=== PATIENT | female | born 1970 | race Caucasian/White ===

== ENCOUNTER 2017-10-24 07:41 | Observation (INO) | payer OTHER, SELFPAY ==
[~2017-10-24 07:41] MED LIST: Bupivacaine 25%/EPINEPHrine/PF 30 ML ONE; Ondansetron 4 MG Tab.DIS PO PRN; Ondansetron 4 MG/2 ML SDV IVPUSH PRN; Scopolamine 1.5 MG Transdermal Patch TRDERM PRN; diphenhydrAMINE 25 MG Cap PO PRN; fentaNYL 100 MCG/2 ML SDV IVPUSH PRN
[2017-10-24] MEDS ORDERED: Acetaminophen 1,000 MG in Premix Bag 1 BAG IV SCH (07:45)
[2017-10-24] MEDS ORDERED: traMADol 50 MG Tab PO PRN (08:00)
[2017-10-24] MEDS ORDERED: Bupivacaine 0.25%/EPINEPHrine 1:200,000 10 ML SDV INJECT ONE (08:00)
[2017-10-24] MEDS ORDERED: ceFAZolin 2 GM in Premix Bag 1 BAG IV ONE (08:00)
[2017-10-24] MEDS: Lactated Ringers 1,000 ML IV SCH (08:50)
--- NOTE | 2017-10-24 08:52 | PCM.PREANE ---
Preanesthetic Assessment - Anesthesia/Transfusion/Family Hx Anesthesia History: Prior Anesthesia Without Reaction Family History of Anesthesia Reaction: No Transfusion History: No Prior Transfusion(s) Intubation History: Unknown - Review of Systems General: No Symptoms Pulmonary: No Symptoms Cardiovascular: No Symptoms Gastrointestinal: No Symptoms Neurological: No Symptoms Other: Reports: None - Physical Assessment Height: 1.52 m Weight: 98.883 kg ASA Class: 2 Mental Status: Alert & Oriented x3 Dentition: Reports: Normal Dentition Thyro-Mental Finger Breadths: 2 Mouth Opening Finger Breadths: 2 ROM/Head Extension: Full Lungs: Clear to Auscultation, Normal Respiratory Effort Cardiovascular: Regular Rate, Regular Rhythm - Allergies Allergies/Adverse Reactions: Allergies Allergy/AdvReac Type Severity Reaction Status Date / Time codeine Allergy Airway Verified 10/22/17 12:31 Tightness morphine Allergy Airway Verified 10/22/17 12:31 Tightness - Blood Blood Available: No - Anesthesia Plan Pre-Op Medication Ordered: None - Acknowledgements Anesthesia Type Planned: General Anesthesia Pt an Appropriate Candidate for the Planned Anesthesia: Yes Alternatives and Risks of Anesthesia Discussed w Pt/Guardian: Yes Pt/Guardian Understands and Agrees with Anesthesia Plan: Yes PreAnesthesia Questionnaire HEENT History: Reports: Other (See Below) Other HEENT History: wears glasses Cardiovascular History: Reports: Other (See Below) Other Cardiovascular History: HTN in the past-not since wt loss Gastrointestinal History: Reports: None Genitourinary History: Reports: None OIL GAUGER History: Reports: Ectopic , Musculoskeletal History: Reports: Arthritis Neurological History: Reports: Migraines Psychiatric History: Reports: Anxiety, Depression, Suicide Attempt Endocrine/Metabolic History: Reports: Diabetes, Type II (h/o diabetes), Hypothyroidism, Obesity/BMI 30+ (BMI 42.6) Other Endocrine/Metabolic History: type II diabetes prior to gastric sleeve - Past Surgical History Head Surgeries/Procedures: Reports: None HEENT Surgical History: Reports: Tonsillectomy GI Surgical History: Reports: Appendectomy, Bariatric Procedure, Cholecystectomy Other GI Surgeries/Procedures: gastric sleeve Female Surgical History: Reports: Section, Endometrial Ablation, Salpingo-Oophorectomy, Tubal Ligation Other Female Surgeries/Procedures: laparoscopy with S&O for ectopic , c/section x4 Endocrine Surgical History: Reports: Thyroidectomy - SUBSTANCE USE Smoking Status *Q: Former Smoker Tobacco Use Within Last Twelve Months: No Recreational Drug Use History: No - HOME MEDS Home Medications: Home Meds Calcium Carbonate [Calcium] 1 tab PO TID 10/22/17 [History] Levothyroxine Sodium [Synthroid] 200 mcg PO DAILY 10/22/17 [History] buPROPion HCl [Wellbutrin Xl] 150 mg PO TID 10/22/17 [History] - CURRENT (IN HOUSE) MEDS Current Meds: Current Medications Hydrocodone Bitart/Acetaminophen ([place] 325-5 Mg) 1 tab PO Q4H PRN PRN Reason: Pain Bupivacaine Liposome (Exparel) 20 ml INFILT ONETIME ONE Stop: 10/24/17 09:01 Cephalexin (Keflex) 500 mg PO Q6HR REGINO Diphenhydramine HCl (Benadryl) 25 mg PO Q6H PRN PRN Reason: Itching Fentanyl (Sublimaze) 50 mcg IVPUSH .Q5MIN PRN PRN Reason: Pain Hydromorphone HCl (Dilaudid) 1 mg IVPUSH Q3H PRN PRN Reason: Pain (severe 7-10) Lactated Ringer's (Ringers, Lactated) 1,000 mls @ 125 mls/hr IV ASDIRECTED REGINO Acetaminophen 1,000 mg/ Premix 100 mls @ 400 mls/hr IV .ONETIME REGINO Ondansetron HCl (Zofran Odt) 4 mg PO Q6H PRN PRN Reason: Nausea/Vomiting Ondansetron HCl (Zofran) 4 mg IVPUSH Q6H PRN PRN Reason: Nausea/Vomiting Scopolamine (Transderm-Scop) 1.5 mg TRDERM .ONCE PRN PRN Reason: Post Op Nausea Tramadol HCl (Ultram) 50 mg PO Q4H PRN PRN Reason: Pain Discontinued Medications Bupivacaine HCl/Epinephrine Bitart ([place] 0.25%/Epinephrine 1:200,000) 10 ml INJECT ONETIME ONE Stop: 10/24/17 08:01 Cefazolin Sodium/Dextrose 2 gm (/ Premix) 50 mls @ 100 mls/hr IV ONETIME ONE Stop: 10/24/17 08:29 Bupivacaine HCl/Epinephrine Bitart (Sensorc Mpf 0.25%-Epi 1:[id number]) Confirm Administered Dose 60 mls @ as directed .ROUTE .STK-MED ONE Stop: 10/24/17 07:39
[2017-10-24] MEDS ORDERED: Midazolam 1 MG/ML 2 ML SDV IVPUSH ONE (08:59)
[2017-10-24] MEDS ORDERED: Bupivacaine Liposome 1.3% 20 ML SDV INFILT ONE (09:00)
[2017-10-24] MEDS ORDERED: Midazolam 1 MG/ML 2 ML SDV ONE (09:54)
[2017-10-24] MEDS ORDERED: Rocuronium 10 MG/ML 10 ML Syringe ONE (09:54)
[2017-10-24] MEDS ORDERED: Lidocaine 2% 5 ML SDV ONE (09:54)
[2017-10-24] MEDS ORDERED: Ondansetron 4 MG/2 ML SDV ONE (09:54)
[2017-10-24] MEDS ORDERED: fentaNYL 250 MCG/5 ML SDV ONE ×2 (09:54→11:48)
[2017-10-24] MEDS ORDERED: EPINEPHrine 1 MG/ML SDV ONE ×2 (10:00→13:17)
[2017-10-24] MEDS ORDERED: Octyl 2-Cyanoacrylate 1 Tube ONE (10:01)
[2017-10-24] MEDS ORDERED: Lidocaine 1% 50 ML MDV ONE ×2 (10:01→13:17)
[2017-10-24] MEDS ORDERED: ceFAZolin/Dextrose,Iso-Osmotic 2 GM/50 ML Duplex Bag IV ONE (10:40)
[2017-10-24] MEDS ORDERED: Dexamethasone 4 MG/ML 5 ML MDV ONE (10:56)
[2017-10-24] MEDS ORDERED: diphenhydrAMINE 50 MG/ML SDV ONE (10:56)
[2017-10-24] MEDS ORDERED: HYDROmorphone 2 MG/ML SDV ONE ×2 (11:08→11:26)
[2017-10-24] MEDS ORDERED: Propofol 200 MG/20 ML SDV ONE (13:24)
[2017-10-24] MEDS ORDERED: Ketorolac 30 MG/ML SDV ONE (14:43)
[2017-10-24] MEDS ORDERED: Promethazine 25 MG/ML SDV IM PRN ×2 (15:13→15:53)
[2017-10-24] MEDS ORDERED: Meperidine PF 25 MG/ML Syringe ONE (15:22)
[2017-10-24] MEDS ORDERED: Meperidine PF 25 MG/ML Syringe IVPUSH PRN (15:22)
--- NOTE | 2017-10-24 15:32 | PCM.OPNOTE ---
- General Post-Op/Procedure Note Date of Surgery/Procedure: 10/24/17 Operative Procedure(s): panniculectomy, abdominal incisional hernia repair, umbilicoplasty and bilateral brachioplasty Pre Op Diagnosis: cosmetic, incendental finding of incisional hernia from previous surgery. Post-Op Diagnosis: Same Anesthesia Technique: General ET Tube, Local Primary Surgeon: Angelina Nettles It Programmer Analyst: Padma Henson Complications: None Condition: Good Free Text/Narrative:: Intake & Output 10/23/17 10/24/17 10/24/17 23:59 07:59 15:59 Intake Total 400 Balance 400
[2017-10-24] MEDS ORDERED: Prochlorperazine 5 MG in Sodium Chloride 0.9% 50 ML IV PRN (15:53)
[2017-10-24] MEDS ORDERED: Prochlorperazine 10 MG/2 ML SDV IV PRN (16:00)
--- NOTE | 2017-10-24 16:09 | PCM.POSTAN ---
POST ANESTHESIA ASSESSMENT - MENTAL STATUS Mental Status: Alert, Oriented - RESPIRATORY Respiratory Status: Respiratory Rate WNL, Airway Patent, O2 Saturation Stable - CARDIOVASCULAR CV Status: Pulse Rate WNL, Blood Pressure Stable - GASTROINTESTINAL GI Status: No Symptoms - PAIN Pain Score: 1 - POST OP HYDRATION Hydration Status: Adequate & Stable - OBSERVATIONS Free Text/Narrative:: no anesthesia problems
--- NOTE | 2017-10-24 17:17 | OR ---
SURGEON: NICANOR BEAUCHAMP MD DATE OF PROCEDURE: 10/24/2017 PREOPERATIVE DIAGNOSES: 1. Abdominal pannus. 2. Incidental finding of an incisional hernia from previous surgery. 3. Cosmetic for the arms. PROCEDURES: 1. Panniculectomy with umbilicoplasty. 2. Abdominal incisional hernia repair, direct. 3. Bilateral upper arm brachioplasty. MECHANICAL ENGINEERING TECHNOLOGIST: HERBIE Simeon. ANESTHESIA: General ET tube with local. INDICATIONS: Ms. Rasmussen is a 47-year-old female, seen today in evaluation for significant excess skin of the abdomen and the arms. She also has significant abdominal fat. We discussed risks and benefits of panniculectomy and brachioplasty. She does understand that this is skin reduction surgery, not weight reduction surgery, but it is the excess skin that is bothering her most. We discussed risks and benefits of this in detail several times. The risks were including, but not limited to, bleeding, infection, damage to underlying or overlying structures, possible need for future interventions, possible scarring. PROCEDURE IN DETAIL: After informed consent was obtained, placed on the chart, the patient was brought to the operating theater and laid in supine position. After adequate general anesthesia was obtained, the area was prepped and draped and a time-out was completed to confirm side and site. Attention was then first paid to the abdominal incision. The lower transverse incision extending onto the mons area was completed and was incised using a 15 blade after adequate infiltration of local anesthesia. Dissection was carried down to the abdominal wall and then up to the xiphoid process. Unfortunately, an incidental incisional hernia was noted at the lower vertical midline incision. Dissection was carried circumferentially around this until the borders were located and the hernia sac was reduced appropriately. Once reduced, several 0 Ethibond [id number] sutures were placed to close the fascia. Once this was completed, attention was then paid to the umbilicus. The dissection was carried superiorly until isolation of the umbilicus. The umbilical stalk was isolated and then the remainder of the dissection was carried up to the xiphoid process. Once this dissection was completed, meticulous hemostasis was obtained. The area was copiously irrigated. Unfortunately, the patient does have a lot of intraabdominal fat and this is unable to be excised or dealt with. Her abdominal musculature is intact and there is no diastasis at the midline. Given the hernia repair, we did not opt for any additional abdominal wall tightening. Once this was addressed, attention was then paid to redraping of the skin flap and transection of the excess skin for a total of 8 pounds of removal. Once this was removed, meticulous hemostasis was again obtained. Once adequately irrigated, two size 10 PRINCE drains were placed in the lower incision and two 0 PDS sutures were used in a plication fashion to close the abdominal wall to the abdominal fascia and also advanced the skin flap. Once this was completed bilaterally, the skin was stapled in place. Attention was then paid to the mons area, which was decided in advance using 2-0 Ethibond sutures in a [id number] fashion to elevate this. Once elevated, attention was then paid to closure of the skin after minor additional trimming in the mons area. After stapling of the skin, the drains were sutured in place using 3-0 Prolene stitch and then attention was then paid to closure of the abdominal wall using deep 3-0 PDS Stratafix suture in running for the fascia, a deep 3-0 Monocryl Stratafix suture for the dermis, and a running 4-0 Stratafix suture for the skin. The patient tolerated this well and these wounds were dressed with Steri-Strips, fluffs, and tape. Attention was then paid to the bilateral arm dissection. Tumescent was infiltrated into the area and equal amounts for bilateral arms. Once adequately infiltrated, attention was paid to the previous markings for proposed skin excision. The markings had been measured symmetrically in similar amounts extending onto the axillary area through Z-plasty. Once this was completed and the tumescent had been infiltrated, allowed to sit. A small amount of liposuction was done in the surrounding areas to promote fat reduction here and then attention was paid to removal of the excess skin. Once the skin was removed, meticulous hemostasis was obtained. A small amount of subcutaneous tissue above the Keyla's fascia plane was removed as well. Once adequately removed, meticulous hemostasis was obtained. The area was stapled back together in approximation and attention was then paid to the excess axillary fat and transition here. The Z-plasty was designed and cut appropriately to remove excess skin as well. Once adequately removed, meticulous hemostasis was obtained and again the skin was stapled back in place. The symmetry procedure was completed on the opposite side. After meticulous hemostasis and tentative closure, the wounds were permanently closed using deep 3-0 Monocryl Stratafix sutures for the dermis and a running 4- 0 Stratafix suture for the skin. No drains were placed as meticulous hemostasis was obtained. Once the wounds were closed, they were dressed with Steri-Strips, ABDs, and a compression garment. A compression garment was placed on the abdomen as well. The patient tolerated this well. All counts, needles were correct at the end of the case. FOLLOWUP INSTRUCTIONS: The patient will be maintained in the hospital for pain control and nausea control and will anticipate discharge in 1 or 2 days. HEVERO / JAGJIT /[id number]
[2017-10-24] MEDS: HYDROmorphone 1 MG/ML Syringe IVPUSH PRN (17:44)
[2017-10-24] MEDS: Cephalexin 500 MG Cap PO SCH ×3 (17:44→23:22)
[2017-10-24] MEDS: Acetaminophen/HYDROcodone 325-5 MG Tab PO PRN (23:22)
[2017-10-25] MEDS: Lactated Ringers 1,000 ML IV SCH ×2 (03:06→12:04)
[2017-10-25] MEDS: Acetaminophen/HYDROcodone 325-5 MG Tab PO PRN ×4 (04:22→20:14)
[2017-10-25] MEDS: Cephalexin 500 MG Cap PO SCH ×4 (05:38→22:59)
--- NOTE | 2017-10-25 07:04 | PCM48HPAN ---
Post Anesthesia Note - EVALUATION WITHIN 48HRS OF ANESTHETIC Vital Signs in Normal Range: Yes Patient Participated in Evaluation: Yes Respiratory Function Stable: Yes Airway Patent: Yes Cardiovascular Function Stable: Yes Hydration Status Stable: Yes Pain Control Satisfactory: Yes Nausea and Vomiting Control Satisfactory: Yes Mental Status Recovered: Yes Resp Rate: 19
[2017-10-25] MEDS: HYDROmorphone 1 MG/ML Syringe IVPUSH PRN (11:02)
[2017-10-25] MEDS ORDERED: traMADol 50 MG Tab ONE (18:52)
[2017-10-25] MEDS ORDERED: Acetaminophen/HYDROcodone 325-5 MG Tab ONE (20:08)
[2017-10-25] MEDS: Calcium Carbonate 500 MG Tablet PO SCH (21:29)
[2017-10-25] MEDS: buPROPion 150 MG Tab.ER PO SCH (21:29)
[2017-10-25] MEDS ORDERED: Cephalexin 500 MG Cap ONE (22:58)
[2017-10-26] MEDS ORDERED: Acetaminophen/HYDROcodone 325-5 MG Tab ONE ×3 (03:26→12:35)
[2017-10-26] MEDS: Acetaminophen/HYDROcodone 325-5 MG Tab PO PRN ×3 (03:34→12:36)
[2017-10-26] MEDS ORDERED: Cephalexin 500 MG Cap ONE (06:06)
[2017-10-26] MEDS: buPROPion 150 MG Tab.ER PO SCH (06:07)
[2017-10-26] MEDS: Calcium Carbonate 500 MG Tablet PO SCH (06:08)
[2017-10-26] MEDS: Cephalexin 500 MG Cap PO SCH ×2 (06:08→13:43)
[2017-10-26] MEDS ORDERED: Levothyroxine 100 MCG Tab PO SCH (07:00)
--- NOTE | 2017-10-26 16:09 | PCM.PN ---
- General Info Date of Service: 10/25/17 Admission Dx/Problem (Free Text): POD 1 s/p panniculectomy with umbilicoplasty and brachioplasty Functional Status: Reports: Pain Controlled, Tolerating Diet, Incentive Spirometry. Denies: New Symptoms - Review of Systems General: Reports: No Symptoms HEENT: Reports: No Symptoms Pulmonary: Reports: No Symptoms Musculoskeletal: Reports: Arm Pain Skin: Reports: No Symptoms Neurological: Reports: No Symptoms Psychiatric: Reports: No Symptoms - Patient Data Vitals - Most Recent: Last Vital Signs Temp 97.6 F 10/26/17 08:51 Pulse 71 10/26/17 08:51 Resp 16 10/26/17 08:51 BP 140/65 10/26/17 08:51 Pulse Ox 91 L 10/26/17 08:51 Weight - Most Recent: 218 lb I&O - Last 24 Hours: Intake & Output 10/26/17 10/26/17 10/26/17 07:59 15:59 23:59 Intake Total 750 Output Total 545 Balance 205 Med Orders - Current: Current Medications Discontinued Medications Hydrocodone Bitart/Acetaminophen ([place] 325-5 Mg) 1 tab PO Q4H PRN PRN Reason: Pain Last Admin: 10/26/17 12:36 Dose: 2 tab Hydrocodone Bitart/Acetaminophen ([place] 325-5 Mg) Confirm Administered Dose 2 tab .ROUTE .STK-MED ONE Stop: 10/25/17 20:09 Last Admin: 10/25/17 20:16 Dose: Not Given Hydrocodone Bitart/Acetaminophen ([place] 325-5 Mg) Confirm Administered Dose 2 tab .ROUTE .STK-MED ONE Stop: 10/26/17 03:27 Last Admin: 10/26/17 04:20 Dose: Not Given Hydrocodone Bitart/Acetaminophen ([place] 325-5 Mg) Confirm Administered Dose 2 tab .ROUTE .STK-MED ONE Stop: 10/26/17 09:02 Last Admin: 10/26/17 10:43 Dose: Not Given Hydrocodone Bitart/Acetaminophen ([place] 325-5 Mg) Confirm Administered Dose 2 tab .ROUTE .STK-MED ONE Stop: 10/26/17 12:36 Last Admin: 10/26/17 13:43 Dose: Not Given Bupivacaine HCl/Epinephrine Bitart ([place] 0.25%/Epinephrine 1:200,000) 10 ml INJECT ONETIME ONE Stop: 10/24/17 08:01 Last Admin: 10/24/17 18:13 Dose: Not Given Bupivacaine Liposome (Exparel) 20 ml INFILT ONETIME ONE Stop: 10/24/17 09:01 Last Admin: 10/24/17 18:13 Dose: Not Given Bupropion HCl (Wellbutrin Xl) 150 mg PO TID [facility] Last Admin: 10/26/17 06:07 Dose: 150 mg Calcium Carbonate/Glycine ([place] Calcium) 500 mg PO TID [facility] Last Admin: 10/26/17 06:08 Dose: 500 mg Cefazolin Sodium/Dextrose (Ancef) Confirm Administered Dose 2 gm IV .STK-MED ONE Stop: 10/24/17 10:41 Cephalexin (Keflex) 500 mg PO Q6HR [facility] Last Admin: 10/26/17 13:43 Dose: Not Given Cephalexin (Keflex) Confirm Administered Dose 500 mg .ROUTE .STK-MED ONE Stop: 10/25/17 22:59 Last Admin: 10/25/17 23:13 Dose: Not Given Cephalexin (Keflex) Confirm Administered Dose 500 mg .ROUTE .STK-MED ONE Stop: 10/26/17 06:07 Last Admin: 10/26/17 06:10 Dose: Not Given Dexamethasone (Dexamethasone) Confirm Administered Dose 20 mg .ROUTE .STK-MED ONE Stop: 10/24/17 10:57 Diphenhydramine HCl (Benadryl) 25 mg PO Q6H PRN PRN Reason: Itching Diphenhydramine HCl (Benadryl) Confirm Administered Dose 50 mg .ROUTE .STK-MED ONE Stop: 10/24/17 10:57 Epinephrine HCl (Adrenalin) Confirm Administered Dose 1 mg .ROUTE .STK-MED ONE Stop: 10/24/17 10:01 Epinephrine HCl (Adrenalin) Confirm Administered Dose 1 mg .ROUTE .STK-MED ONE Stop: 10/24/17 13:18 Fentanyl (Sublimaze) 50 mcg IVPUSH .Q5MIN PRN PRN Reason: Pain Fentanyl (Sublimaze) Confirm Administered Dose 250 mcg .ROUTE .STK-MED ONE Stop: 10/24/17 09:55 Fentanyl (Sublimaze) Confirm Administered Dose 250 mcg .ROUTE .STK-MED ONE Stop: 10/24/17 11:49 Hydromorphone HCl (Dilaudid) 1 mg IVPUSH Q3H PRN PRN Reason: Pain (severe 7-10) Last Admin: 10/25/17 11:02 Dose: 1 mg Hydromorphone HCl (Dilaudid) Confirm Administered Dose 2 mg .ROUTE .STK-MED ONE Stop: 10/24/17 11:09 Hydromorphone HCl (Dilaudid) Confirm Administered Dose 2 mg .ROUTE .STK-MED ONE Stop: 10/24/17 11:27 Lactated Ringer's (Ringers, Lactated) 1,000 mls @ 125 mls/hr IV ASDIRECTED [facility] Last Admin: 10/25/17 12:04 Dose: 125 mls/hr Cefazolin Sodium/Dextrose 2 gm (/ Premix) 50 mls @ 100 mls/hr IV ONETIME ONE Stop: 10/24/17 08:29 Last Admin: 10/24/17 18:09 Dose: Not Given Acetaminophen 1,000 mg/ Premix 100 mls @ 400 mls/hr IV .ONETIME [facility] Last Admin: 10/24/17 09:10 Dose: 400 mls/hr Bupivacaine HCl/Epinephrine Bitart (Sensorc Mpf 0.25%-Epi 1:[id number]) Confirm Administered Dose 60 mls @ as directed .ROUTE .STK-MED ONE Stop: 10/24/17 07:39 Ketorolac Tromethamine (Toradol) Confirm Administered Dose 30 mg .ROUTE .STK- MED ONE Stop: 10/24/17 14:44 Levothyroxine Sodium (Synthroid) 200 mcg PO DAILY@0700 [facility] Last Admin: 10/26/17 06:07 Dose: 200 mcg Lidocaine (Xylocaine-Mpf 2%) Confirm Administered Dose 5 ml .ROUTE .STK-MED ONE Stop: 10/24/17 09:55 Lidocaine HCl (Xylocaine 1%) Confirm Administered Dose 50 ml .ROUTE .STK-MED ONE Stop: 10/24/17 10:02 Lidocaine HCl (Xylocaine 1%) Confirm Administered Dose 50 ml .ROUTE .STK-MED ONE Stop: 10/24/17 13:18 Meperidine HCl (Demerol) 25 mg IVPUSH .ONETIME PRN PRN Reason: Shivering Meperidine HCl (Demerol) Confirm Administered Dose 25 mg .ROUTE .STK-MED ONE Stop: 10/24/17 15:23 Last Admin: 10/24/17 18:15 Dose: Not Given Midazolam HCl (Versed 1 Mg/Ml) 2 mg IVPUSH ONETIME ONE Stop: 10/24/17 09:00 Last Admin: 10/24/17 10:22 Dose: 1 mg Midazolam HCl (Versed 1 Mg/Ml) Confirm Administered Dose 2 mg .ROUTE .STK-MED ONE Stop: 10/24/17 09:55 Octyl Cyanoacrylate (Dermabond Advance) Confirm Administered Dose 1 applic .ROUTE .STK-MED ONE Stop: 10/24/17 10:02 Ondansetron HCl (Zofran Odt) 4 mg PO Q6H PRN PRN Reason: Nausea/Vomiting Ondansetron HCl (Zofran) 4 mg IVPUSH Q6H PRN PRN Reason: Nausea/Vomiting Last Admin: 10/25/17 11:07 Dose: 4 mg Ondansetron HCl (Zofran) Confirm Administered Dose 4 mg .ROUTE .STK-MED ONE Stop: 10/24/17 09:55 Prochlorperazine Edisylate (Compazine) 5 mg IV Q6H PRN PRN Reason: NAUSEA Promethazine HCl (Phenergan) 12.5 mg IM .ONETIME PRN PRN Reason: Nausea Last Admin: 10/24/17 15:18 Dose: 12.5 mg Promethazine HCl (Phenergan) 12.5 mg IM Q6H PRN PRN Reason: Nausea Propofol (Diprivan 20 Ml) Confirm Administered Dose 200 mg .ROUTE .STK-MED ONE Stop: 10/24/17 13:25 Rocuronium [place] (Zemuron) Confirm Administered Dose 100 mg .ROUTE .STK-MED ONE Stop: 10/24/17 09:55 Scopolamine (Transderm-Scop) 1.5 mg TRDERM .ONCE PRN PRN Reason: Post Op Nausea Last Admin: 10/24/17 10:47 Dose: 1.5 mg Tramadol HCl (Ultram) 50 mg PO Q4H PRN PRN Reason: Pain Last Admin: 10/25/17 18:53 Dose: 50 mg Tramadol HCl (Ultram) Confirm Administered Dose 50 mg .ROUTE .STK-MED ONE Stop: 10/25/17 18:53 Last Admin: 10/25/17 19:01 Dose: Not Given - Exam Quality Assessment: No: Supplemental Oxygen General: Alert, Oriented, Cooperative HEENT: Pupils Reactive, EOMI Lungs: Normal Respiratory Effort Extremities: Normal Inspection, Other (minor swelling as expected. Dressings in place with garments. ) Skin: Warm, Dry Wound/Incisions: Healing Well, Dressing Dry and Intact, Drainage (in PRINCE as expected) Neurological: No New Focal Deficit Psy/Mental Status: Alert, Normal Affect, Normal Mood - Problem List & Annotations (1) Status post panniculectomy SNOMED Code(s): 022503700, 499736567, 532993467 Code(s): Z98.890 - OTHER SPECIFIED POSTPROCEDURAL STATES Status: Acute Priority: Medium (2) Excess skin of abdomen SNOMED Code(s): 983291849 Code(s): L98.7 - EXCESSIVE AND REDUNDANT SKIN AND SUBCUTANEOUS TISSUE Status: Acute Priority: Medium (3) Excess skin of arm SNOMED Code(s): 94607426072977369 Code(s): L98.7 - EXCESSIVE AND REDUNDANT SKIN AND SUBCUTANEOUS TISSUE Status: Acute Priority: Medium - Problem List Review Problem List Initiated/Reviewed/Updated: Yes - My Orders Last 24 Hours: My Active Orders 10/25/17 16:00 Admission Status [Patient Status] [ADT] Routine 10/26/17 10:21 Ready for Discharge [RC] PER UNIT ROUTINE - Plan Plan:: Continue pain control and keep one more night. Likely home tomorrow. Doing OK aside from some nausea and wants to make sure ok without IV meds.
--- NOTE | 2017-10-26 16:12 | PCM.PN ---
- General Info Date of Service: 10/26/17 Admission Dx/Problem (Free Text): POD 1 s/p panniculectomy with umbilicoplasty and brachioplasty Functional Status: Reports: Pain Controlled, Tolerating Diet, Ambulating, Urinating, Incentive Spirometry. Denies: New Symptoms - Review of Systems General: Reports: No Symptoms HEENT: Reports: No Symptoms Pulmonary: Reports: No Symptoms Neurological: Reports: No Symptoms Psychiatric: Reports: No Symptoms - Patient Data Vitals - Most Recent: Last Vital Signs Temp 97.6 F 10/26/17 08:51 Pulse 71 10/26/17 08:51 Resp 16 10/26/17 08:51 BP 140/65 10/26/17 08:51 Pulse Ox 91 L 10/26/17 08:51 Weight - Most Recent: 218 lb I&O - Last 24 Hours: Intake & Output 10/26/17 10/26/17 10/26/17 07:59 15:59 23:59 Intake Total 750 Output Total 545 Balance 205 Med Orders - Current: Current Medications Discontinued Medications Hydrocodone Bitart/Acetaminophen (Lincoln 325-5 Mg) 1 tab PO Q4H PRN PRN Reason: Pain Last Admin: 10/26/17 12:36 Dose: 2 tab Hydrocodone Bitart/Acetaminophen (Lincoln 325-5 Mg) Confirm Administered Dose 2 tab .ROUTE .STK-MED ONE Stop: 10/25/17 20:09 Last Admin: 10/25/17 20:16 Dose: Not Given Hydrocodone Bitart/Acetaminophen (Lincoln 325-5 Mg) Confirm Administered Dose 2 tab .ROUTE .STK-MED ONE Stop: 10/26/17 03:27 Last Admin: 10/26/17 04:20 Dose: Not Given Hydrocodone Bitart/Acetaminophen (Lincoln 325-5 Mg) Confirm Administered Dose 2 tab .ROUTE .STK-MED ONE Stop: 10/26/17 09:02 Last Admin: 10/26/17 10:43 Dose: Not Given Hydrocodone Bitart/Acetaminophen (Lincoln 325-5 Mg) Confirm Administered Dose 2 tab .ROUTE .STK-MED ONE Stop: 10/26/17 12:36 Last Admin: 10/26/17 13:43 Dose: Not Given Bupivacaine HCl/Epinephrine Bitart (Marcaine 0.25%/Epinephrine 1:200,000) 10 ml INJECT ONETIME ONE Stop: 10/24/17 08:01 Last Admin: 10/24/17 18:13 Dose: Not Given Bupivacaine Liposome (Exparel) 20 ml INFILT ONETIME ONE Stop: 10/24/17 09:01 Last Admin: 10/24/17 18:13 Dose: Not Given Bupropion HCl (Wellbutrin Xl) 150 mg PO TID [facility] Last Admin: 10/26/17 06:07 Dose: 150 mg Calcium Carbonate/Glycine (Oyster Shell Calcium) 500 mg PO TID [facility] Last Admin: 10/26/17 06:08 Dose: 500 mg Cefazolin Sodium/Dextrose (Ancef) Confirm Administered Dose 2 gm IV .STK-MED ONE Stop: 10/24/17 10:41 Cephalexin (Keflex) 500 mg PO Q6HR [facility] Last Admin: 10/26/17 13:43 Dose: Not Given Cephalexin (Keflex) Confirm Administered Dose 500 mg .ROUTE .STK-MED ONE Stop: 10/25/17 22:59 Last Admin: 10/25/17 23:13 Dose: Not Given Cephalexin (Keflex) Confirm Administered Dose 500 mg .ROUTE .STK-MED ONE Stop: 10/26/17 06:07 Last Admin: 10/26/17 06:10 Dose: Not Given Dexamethasone (Dexamethasone) Confirm Administered Dose 20 mg .ROUTE .STK-MED ONE Stop: 10/24/17 10:57 Diphenhydramine HCl (Benadryl) 25 mg PO Q6H PRN PRN Reason: Itching Diphenhydramine HCl (Benadryl) Confirm Administered Dose 50 mg .ROUTE .STK-MED ONE Stop: 10/24/17 10:57 Epinephrine HCl (Adrenalin) Confirm Administered Dose 1 mg .ROUTE .STK-MED ONE Stop: 10/24/17 10:01 Epinephrine HCl (Adrenalin) Confirm Administered Dose 1 mg .ROUTE .STK-MED ONE Stop: 10/24/17 13:18 Fentanyl (Sublimaze) 50 mcg IVPUSH .Q5MIN PRN PRN Reason: Pain Fentanyl (Sublimaze) Confirm Administered Dose 250 mcg .ROUTE .STK-MED ONE Stop: 10/24/17 09:55 Fentanyl (Sublimaze) Confirm Administered Dose 250 mcg .ROUTE .STK-MED ONE Stop: 10/24/17 11:49 Hydromorphone HCl (Dilaudid) 1 mg IVPUSH Q3H PRN PRN Reason: Pain (severe 7-10) Last Admin: 10/25/17 11:02 Dose: 1 mg Hydromorphone HCl (Dilaudid) Confirm Administered Dose 2 mg .ROUTE .STK-MED ONE Stop: 10/24/17 11:09 Hydromorphone HCl (Dilaudid) Confirm Administered Dose 2 mg .ROUTE .STK-MED ONE Stop: 10/24/17 11:27 Lactated Ringer's (Ringers, Lactated) 1,000 mls @ 125 mls/hr IV ASDIRECTED [facility] Last Admin: 10/25/17 12:04 Dose: 125 mls/hr Cefazolin Sodium/Dextrose 2 gm (/ Premix) 50 mls @ 100 mls/hr IV ONETIME ONE Stop: 10/24/17 08:29 Last Admin: 10/24/17 18:09 Dose: Not Given Acetaminophen 1,000 mg/ Premix 100 mls @ 400 mls/hr IV .ONETIME [facility] Last Admin: 10/24/17 09:10 Dose: 400 mls/hr Bupivacaine HCl/Epinephrine Bitart (Sensorc Mpf 0.25%-Epi 1:[id number]) Confirm Administered Dose 60 mls @ as directed .ROUTE .STK-MED ONE Stop: 10/24/17 07:39 Ketorolac Tromethamine (Toradol) Confirm Administered Dose 30 mg .ROUTE .STK- MED ONE Stop: 10/24/17 14:44 Levothyroxine Sodium (Synthroid) 200 mcg PO DAILY@0700 [facility] Last Admin: 10/26/17 06:07 Dose: 200 mcg Lidocaine (Xylocaine-Mpf 2%) Confirm Administered Dose 5 ml .ROUTE .STK-MED ONE Stop: 10/24/17 09:55 Lidocaine HCl (Xylocaine 1%) Confirm Administered Dose 50 ml .ROUTE .STK-MED ONE Stop: 10/24/17 10:02 Lidocaine HCl (Xylocaine 1%) Confirm Administered Dose 50 ml .ROUTE .STK-MED ONE Stop: 10/24/17 13:18 Meperidine HCl (Demerol) 25 mg IVPUSH .ONETIME PRN PRN Reason: Shivering Meperidine HCl (Demerol) Confirm Administered Dose 25 mg .ROUTE .STK-MED ONE Stop: 10/24/17 15:23 Last Admin: 10/24/17 18:15 Dose: Not Given Midazolam HCl (Versed 1 Mg/Ml) 2 mg IVPUSH ONETIME ONE Stop: 10/24/17 09:00 Last Admin: 10/24/17 10:22 Dose: 1 mg Midazolam HCl (Versed 1 Mg/Ml) Confirm Administered Dose 2 mg .ROUTE .STK-MED ONE Stop: 10/24/17 09:55 Octyl Cyanoacrylate (Dermabond Advance) Confirm Administered Dose 1 applic .ROUTE .STK-MED ONE Stop: 10/24/17 10:02 Ondansetron HCl (Zofran Odt) 4 mg PO Q6H PRN PRN Reason: Nausea/Vomiting Ondansetron HCl (Zofran) 4 mg IVPUSH Q6H PRN PRN Reason: Nausea/Vomiting Last Admin: 10/25/17 11:07 Dose: 4 mg Ondansetron HCl (Zofran) Confirm Administered Dose 4 mg .ROUTE .STK-MED ONE Stop: 10/24/17 09:55 Prochlorperazine Edisylate (Compazine) 5 mg IV Q6H PRN PRN Reason: NAUSEA Promethazine HCl (Phenergan) 12.5 mg IM .ONETIME PRN PRN Reason: Nausea Last Admin: 10/24/17 15:18 Dose: 12.5 mg Promethazine HCl (Phenergan) 12.5 mg IM Q6H PRN PRN Reason: Nausea Propofol (Diprivan 20 Ml) Confirm Administered Dose 200 mg .ROUTE .STK-MED ONE Stop: 10/24/17 13:25 Rocuronium Jet (Zemuron) Confirm Administered Dose 100 mg .ROUTE .STK-MED ONE Stop: 10/24/17 09:55 Scopolamine (Transderm-Scop) 1.5 mg TRDERM .ONCE PRN PRN Reason: Post Op Nausea Last Admin: 10/24/17 10:47 Dose: 1.5 mg Tramadol HCl (Ultram) 50 mg PO Q4H PRN PRN Reason: Pain Last Admin: 10/25/17 18:53 Dose: 50 mg Tramadol HCl (Ultram) Confirm Administered Dose 50 mg .ROUTE .STK-MED ONE Stop: 10/25/17 18:53 Last Admin: 10/25/17 19:01 Dose: Not Given - Exam General: Alert, Oriented, Cooperative HEENT: Pupils Reactive Lungs: Normal Respiratory Effort Extremities: Normal Inspection, Other (incisions clean and intact. minor bruising as expected. Excellent improvement in contour. ) Skin: Warm, Dry Wound/Incisions: Drainage (in PRINCE's as expected. ), Other (incision is clean and intact. No signs of infection or seroma. No hematoma. INcision clean and flat with swelling as expected. PRINCE sites clean. ). No: Erythema Neurological: No New Focal Deficit Psy/Mental Status: Alert, Normal Affect, Normal Mood - Problem List & Annotations (1) Status post panniculectomy SNOMED Code(s): 360981987, 055385145, 204562813 Code(s): Z98.890 - OTHER SPECIFIED POSTPROCEDURAL STATES Status: Acute Priority: Medium (2) Excess skin of abdomen SNOMED Code(s): 046239601 Code(s): L98.7 - EXCESSIVE AND REDUNDANT SKIN AND SUBCUTANEOUS TISSUE Status: Acute Priority: Medium (3) Excess skin of arm SNOMED Code(s): 76395283229773080 Code(s): L98.7 - EXCESSIVE AND REDUNDANT SKIN AND SUBCUTANEOUS TISSUE Status: Acute Priority: Medium - Problem List Review Problem List Initiated/Reviewed/Updated: Yes - My Orders Last 24 Hours: My Active Orders 10/25/17 16:00 Admission Status [Patient Status] [ADT] Routine 10/26/17 10:21 Ready for Discharge [RC] PER UNIT ROUTINE - Plan Plan:: Home today. Oral Lincoln, Keflex and Zofran if needed Drain cares. Daily shower and dressing change. Follow up next week, sooner with any issues or concerns.
== END 2017-10-26 13:45 | disposition home or self-care (01) ==
LOC: MW.SDS 07:41 → MW.MS 17:24 → MW.SDS 10-25 16:00 → MW.MS 10-25 16:00
PROVIDERS: ADMIT Plastic Surgery; ATTEND Plastic Surgery
DX: Z41.1 Encounter for cosmetic surgery (principal); E65 Localized adiposity; L98.7 Excessive and redundant skin and subcutaneous tissue; K43.2 Incisional hernia without obstruction or gangrene; M19.90 Unspecified osteoarthritis, unspecified site; G43.909 Migraine, unspecified, not intractable, without status migrainosus; F41.9 Anxiety disorder, unspecified; F32.9 Major depressive disorder, single episode, unspecified; E11.9 Type 2 diabetes mellitus without complications; E03.9 Hypothyroidism, unspecified; E66.9 Obesity, unspecified; Z68.42 Body mass index [BMI] 45.0-49.9, adult; Z87.891 Personal history of nicotine dependence; Z79.899 Other long term (current) drug therapy; Z88.5 Allergy status to narcotic agent; Z98.84 Bariatric surgery status
CPT/HCPCS: 15830; 15836; 15847; A9270; J0171; J0690; J1100; J1170; J1200; J1885; J2250; J2405; J2550; J3010; J7120; J2704

== ENCOUNTER 2017-12-11 16:23 | Emergency (ER) | payer OTHER, SELFPAY ==
[2017-12-11] MEDS ORDERED: diphenhydrAMINE 50 MG/ML SDV IVPUSH ONE (16:35)
[2017-12-11] MEDS ORDERED: Sodium Chloride 0.9% 1,000 ML IV ONE (16:35)
[2017-12-11 17:17] LABS: CHLORIDE,CL 102 mmol/L (98-107); SODIUM,NA 140 mmol/L (136-145)
--- NOTE | 2017-12-11 18:19 | EDM.PDOC ---
ED HPI GENERAL MEDICAL PROBLEM - General Chief Complaint: Neurological Problem Stated Complaint: RT SIDE OF FACE IS NUMB AND IS DIZZY Time Seen by Provider: 12/11/17 18:16 Source of Information: Reports: Patient - History of Present Illness INITIAL COMMENTS - FREE TEXT/NARRATIVE: HISTORY AND PHYSICAL: History of present illness: Patient presents with right facial numbness that was associated with migraine headache, she was able take Excedrin Migraine and relieve the headache the numbness sensation has also resolved by the time she had arrived to the emergency room she did not have any other weakness swallowing difficulties slurred speech or facial droop No fever nausea vomiting chills sweats no chest pain shortness breath headache dizziness palpitation no bowel or urine symptoms Review of systems: As per history of present illness and below otherwise all systems reviewed and negative. Past medical history: As per history of present illness and as reviewed below otherwise noncontributory. Surgical history: As per history of present illness and as reviewed below otherwise noncontributory. Social history: No reported history of drug or alcohol abuse. Family history: As per history of present illness and as reviewed below otherwise noncontributory. Physical exam: HEENT: Atraumatic, normocephalic, pupils reactive, negative for conjunctival pallor or scleral icterus, mucous membranes moist, throat clear, neck supple, nontender, trachea midline. Lungs: Clear to auscultation, breath sounds equal bilaterally, chest nontender. Heart: S1S2, regular, negative for clicks, rubs, or JVD. Abdomen: Soft, nondistended, nontender. Negative for masses or hepatosplenomegaly. Negative for costovertebral tenderness. Pelvis: Stable nontender. Genitourinary: Deferred. Rectal: Deferred. Extremities: Atraumatic, negative for cords or calf pain. Neurovascular unremarkable. Neuro: Awake, alert, oriented. Cranial nerves II through XII unremarkable. Cerebellum unremarkable. Motor and sensory unremarkable throughout. Exam nonfocal. Diagnostics: [TBC CMP INR troponin EKG Chest [address] ] Therapeutics: [ aspirin 81 mg daily ] patient offered observation admission she declined/refused Impression: [ facial numbness resolved Likely sequela of migraine Cannot fully rule out TIA ] Definitive disposition and diagnosis as appropriate pending reevaluation and review of above. - Related Data Allergies Allergy/AdvReac Type Severity Reaction Status Date / Time codeine Allergy Airway Verified 12/11/17 16:44 Tightness morphine Allergy Airway Verified 12/11/17 16:44 Tightness Home Meds: Home Meds Levothyroxine Sodium [Synthroid] 200 mcg PO DAILY 10/22/17 [History] buPROPion HCl [Wellbutrin Xl] 150 mg PO TID 10/22/17 [History] Past Medical History HEENT History: Reports: Other (See Below) Other HEENT History: wears glasses Cardiovascular History: Reports: Other (See Below) Other Cardiovascular History: HTN in the past-not since wt loss Gastrointestinal History: Reports: None Genitourinary History: Reports: None 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 , Musculoskeletal History: Reports: Arthritis Neurological History: Reports: Migraines Psychiatric History: Reports: Anxiety, Depression, Suicide Attempt Endocrine/Metabolic History: Reports: Diabetes, Type II, Hypothyroidism, Obesity /BMI 30+ Other Endocrine/Metabolic History: type II diabetes prior to gastric sleeve - Past Surgical History Head Surgeries/Procedures: Reports: None HEENT Surgical History: Reports: Tonsillectomy GI Surgical History: Reports: Appendectomy, Bariatric Procedure, Cholecystectomy Other GI Surgeries/Procedures: gastric sleeve Female Surgical History: Reports: Section, Endometrial Ablation, Salpingo-Oophorectomy, Tubal Ligation Other Female Surgeries/Procedures: laparoscopy with S&O for ectopic , c/section x4 Endocrine Surgical History: Reports: Thyroidectomy Social & Family History - Family History Family Medical History: Noncontributory - Tobacco Use Smoking Status *Q: Never Smoker Second Hand Smoke Exposure: No - Caffeine Use Caffeine Use: Reports: Soda - Recreational Drug Use Recreational Drug Use: No ED ROS GENERAL - Review of Systems Review Of Systems: See Below ED EXAM, GENERAL - Physical Exam Exam: See Below Course - Vital Signs Last Recorded V/S: Last Vital Signs Temp 98.2 F 12/11/17 16:39 Pulse 79 12/11/17 17:56 Resp 18 12/11/17 17:56 BP 146/93 H 12/11/17 17:56 Pulse Ox 99 12/11/17 17:56 - Orders/Labs/Meds Orders: Active Orders 24 hr Category Date Time Status EKG Documentation Completion [RC] STAT Care 12/11/17 16:35 Active Chest 1V Frontal [CR] Stat Exams 12/11/17 16:35 Taken Head wo Cont [CT] Stat Exams 12/11/17 16:38 Taken UA W/MICROSCOPIC [URIN] Stat Lab 12/11/17 16:35 Ordered Labs: Laboratory Tests 12/11/17 12/11/17 12/11/17 Range/Units 16:43 16:43 16:43 WBC 9.41 (4.0-11.0) K/uL RBC 4.20 L (4.30-5.90) M/uL Hgb 12.6 (12.0-16.0) g/dL Hct 36.5 (36.0-46.0) % MCV 86.9 (80.0-98.0) fL MCH 30.0 (27.0-32.0) pg MCHC 34.5 (31.0-37.0) g/dL RDW Std Deviation 42.6 (28.0-62.0) fl RDW Coeff of Servando 13 (11.0-15.0) % Plt Count 284 (150-400) K/uL MPV 9.50 (7.40-12.00) fL Neut % (Auto) 60.3 (48.0-80.0) % Lymph % (Auto) 31.6 (16.0-40.0) % [place] % (Auto) 6.6 (0.0-15.0) % Eos % (Auto) 1.3 (0.0-7.0) % Baso % (Auto) 0.2 (0.0-1.5) % Neut # (Auto) 5.7 (1.4-5.7) K/uL Lymph # (Auto) 3.0 H (0.6-2.4) K/uL [place] # (Auto) 0.6 (0.0-0.8) K/uL Eos # (Auto) 0.1 (0.0-0.7) K/uL Baso # (Auto) 0.0 (0.0-0.1) K/uL Nucleated RBC % 0.0 /100WBC Nucleated RBCs # 0 K/uL INR 0.93 Sodium 140 (136-145) mmol/L Potassium 3.5 (3.5-5.1) mmol/L Chloride 102 (98-107) mmol/L Carbon Dioxide 28.1 (21.0-32.0) mmol/L BUN 14 (7.0-18.0) mg/dL Creatinine 0.7 (0.6-1.0) mg/dL Est Cr Clr Drug Dosing 72.90 mL/min Estimated GFR (MDRD) > 60.0 ml/min Glucose 96 (74-106) mg/dL Calcium 8.5 (8.5-10.1) mg/dL Total Bilirubin 0.1 L (0.2-1.0) mg/dL AST 12 L (15-37) IU/L ALT 18 (14-63) IU/L Alkaline Phosphatase 81 (46-116) U/L Troponin I < 0.050 (0.000-0.056) ng/mL Total Protein 7.7 (6.4-8.2) g/dL Albumin 3.7 (3.4-5.0) g/dL Globulin 4.0 H (2.0-3.5) g/dL Albumin/Globulin Ratio 0.9 L (1.3-2.8) Meds: Medications Discontinued Medications Generic Name Dose Route Start Last Admin Trade Name Martine PRN Reason Stop Dose Admin Diphenhydramine HCl 50 mg 12/11/17 16:35 12/11/17 16:45 Benadryl IVPUSH 12/11/17 16:36 50 mg ONETIME ONE Administration Sodium Chloride 1,000 mls @ 999 mls/hr 12/11/17 16:35 12/11/17 16:45 Normal Saline IV 12/11/17 17:35 999 mls/hr STAT ONE Administration Departure - Departure Time of Disposition: 18:18 Disposition: Home, Self-Care 01 Condition: Good Clinical Impression: Encounter for medical screening examination - Discharge Information Referrals: PCP,None [Primary Care Provider] - Additional Instructions: Recommend aspirin 81 mg by mouth daily With history of migraine as discussed the symptoms may recur with migraine follow with yo primary care closely Return to emergency room if symptoms persist or worsen or new concerning symptoms develop as discussed [facility] [address] [place] [id number] The following information is given to patients seen in the emergency department who are being discharged to home. This information is to outline your options for follow-up care. We provide all patients seen in our emergency department with a follow-up referral. The need for follow-up, as well as the timing and circumstances, are variable depending upon the specifics of your emergency department visit. If you don't have a primary care physician on staff, we will provide you with a referral. We always advise you to contact your personal physician following an emergency department visit to inform them of the circumstance of the visit and for follow-up with them and/or the need for any referrals to a consulting specialist. The emergency department will also refer you to a specialist when appropriate. This referral assures that you have the opportunity for follow-up care with a specialist. All of these measure are taken in an effort to provide you with optimal care, which includes your follow-up. Under all circumstances we always encourage you to contact your private physician who remains a resource for coordinating your care. When calling for follow-up care, please make the office aware that this follow-up is from your recent emergency room visit. If for any reason you are refused follow-up, please contact the [facility] emergency department at and asked to speak to the emergency department charge nurse. - My Orders Last 24 Hours: My Active Orders 12/11/17 16:35 EKG Documentation Completion [RC] STAT Chest 1V Frontal [CR] Stat UA W/MICROSCOPIC [URIN] Stat 12/11/17 16:38 Head wo Cont [CT] Stat - Assessment/Plan Last 24 Hours: My Active Orders 12/11/17 16:35 EKG Documentation Completion [RC] STAT Chest 1V Frontal [CR] Stat UA W/MICROSCOPIC [URIN] Stat 12/11/17 16:38 Head wo Cont [CT] Stat
--- NOTE | 2017-12-12 09:08 | CT ---
EXAM DATE: 12/11/17 PATIENT'S AGE: 47 Patient: NIYAH DEUTSCH Facility: [place], [place] Site . Site : 1970 Study: CT Head wo cont [id number]/14/2018 5:22:26 PM Ordering Physician: Froylan Forrester Final Report: INDICATION: RIGHT SIDED FACIAL NUMBNESS AND DIZZINESS CT HEAD WITHOUT CONTRAST TECHNIQUE: Multiple axial CT images were performed through the head without intravenous contrast administration. COMPARISON: No previous studies are currently available for comparison. FINDINGS: No acute intracranial hemorrhage is identified. No extra-axial collections are evident and there is no mass effect or midline shift. Ventricles are normal in size and configuration. Brain parenchyma appears normal with unremarkable swain-white differentiation. Osseous structures are within normal limits and no fractures are seen. Included portions of the paranasal sinuses and mastoid air cells are normally aerated. IMPRESSION: Normal non-contrast head CT. SHAHZAD YOU MD [employer] Dictated by: Anshul You MD @ 12/11/2017 17:46:56 (Electronic Signature) Report Signed by Proxy. [facility]
--- NOTE | 2017-12-12 09:09 | CR ---
EXAM DATE: 12/11/17 PATIENT'S AGE: 47 Patient: NIYAH DEUTSCH Facility: [place], [place] Site . Site : 1970 Study: XRay Chest [id number]/14/2018 5:25:48 PM Ordering Physician: Froylan Forrester Final Report: INDICATION: RIGHT SIDED FACIAL NUMBNESS/DIZZINESS CHEST, ONE VIEW An AP radiograph of the chest was performed. Comparison: No previous studies are currently available for comparison. The lungs appear clear and no pleural effusions are identified. The cardiomediastinal silhouette and pulmonary vasculature appear normal, as do the visualized bones. IMPRESSION: No acute intrathoracic abnormality identified. SHAHZAD YOU MD [employer] Dictated by: Anshul You MD @ 12/11/2017 17:46:18 (Electronic Signature) Report Signed by Proxy. [facility]
== END 2017-12-11 18:30 | disposition home or self-care (01) ==
LOC: MW.ED 16:23
DX: R20.0 Anesthesia of skin (principal); I10 Essential (primary) hypertension; E11.9 Type 2 diabetes mellitus without complications; E66.9 Obesity, unspecified; E03.9 Hypothyroidism, unspecified; Z79.899 Other long term (current) drug therapy
CPT/HCPCS: 36415; 70450; 71045; 80053; 84484; 85025; 85610; 93005; 96361; 96374; 99285; J1200; J7040; 99283

== ENCOUNTER 2018-09-24 14:20 | Emergency (ER) | payer OTHER ==
--- NOTE | 2018-09-24 15:29 | EDM.PDOC ---
ED HPI GENERAL MEDICAL PROBLEM - General Chief Complaint: Lower Extremity Injury/Pain Stated Complaint: LT LEG PAIN Time Seen by Provider: 09/24/18 14:32 Source of Information: Reports: Patient History Limitations: Reports: No Limitations - History of Present Illness INITIAL COMMENTS - FREE TEXT/NARRATIVE: Presents reporting a 24-hour history of left calf pain that seems to be worsening. Denies shortness of breath, fever. She does have a headache but she states she always has one like this. She denies recent long car or airplane travel, recent surgery, she does not take control pills. 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 left lower leg Pain Score (Numeric/FACES): 7 - Related Data Allergies Allergy/AdvReac Type Severity Reaction Status Date / Time codeine Allergy Airway Verified 09/24/18 14:29 Tightness morphine Allergy Airway Verified 09/24/18 14:29 Tightness shrimp Allergy Airway Verified 09/24/18 14:29 Tightness Home Meds: Home Meds Levothyroxine Sodium [Synthroid] 224 mcg PO DAILY 10/22/17 [History] buPROPion HCl [Wellbutrin Xl] 150 mg PO TID 10/22/17 [History] Calcium Carbonate [Calcium] 600 mg PO DAILY 03/25/18 [History] EPINEPHrine [Epipen] 0.3 mg IM ONETIME #1 dose 03/25/18 [Rx] EPINEPHrine [Epipen 2-[place]] 09/24/18 [History] Magnesium 09/24/18 [History] Magnesium Oxide 09/24/18 [History] Potassium Gluconate [Potassium] 09/24/18 [History] Past Medical History HEENT History: Reports: Other (See Below) Other HEENT History: wears glasses Cardiovascular History: Reports: Other (See Below) Other Cardiovascular History: HTN in the past-not since wt loss Gastrointestinal History: Reports: None Genitourinary History: Reports: None 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 , Musculoskeletal History: Reports: Arthritis Neurological History: Reports: Migraines Psychiatric History: Reports: Anxiety, Depression, Suicide Attempt Endocrine/Metabolic History: Reports: Diabetes, Type II, Hypothyroidism, Obesity /BMI 30+ Other Endocrine/Metabolic History: type II diabetes prior to gastric sleeve - Infectious Disease History Infectious Disease History: Reports: Chicken Pox - Past Surgical History Head Surgeries/Procedures: Reports: None HEENT Surgical History: Reports: Tonsillectomy GI Surgical History: Reports: Appendectomy, Bariatric Procedure, Cholecystectomy Other GI Surgeries/Procedures: gastric sleeve Female Surgical History: Reports: Section, Endometrial Ablation, Salpingo-Oophorectomy, Tubal Ligation Other Female Surgeries/Procedures: laparoscopy with S&O for ectopic , c/section x4 Endocrine Surgical History: Reports: Thyroidectomy Social & Family History - Family History Family Medical History: Noncontributory - Tobacco Use Smoking Status *Q: Never Smoker - Caffeine Use Caffeine Use: Reports: Soda - Recreational Drug Use Recreational Drug Use: No Review of Systems - Review of Systems Review Of Systems: ROS reveals no pertinent complaints other than HPI. ED EXAM, GENERAL - Physical Exam Exam: See Below Exam Limited By: No Limitations General Appearance: Alert, No Apparent Distress Ears: Normal External Exam Nose: Normal Inspection Throat/Mouth: Normal Inspection Head: Atraumatic, Normocephalic Neck: Normal Inspection Respiratory/Chest: No Respiratory Distress, Lungs Clear, Normal Breath Sounds Cardiovascular: Normal Peripheral Pulses, Regular Rate, Rhythm GI/Abdominal: Normal Bowel Sounds, Soft, Non-Tender, No Distention Back Exam: Normal Inspection, Full Range of Motion Extremities: Other (Left calf soft, no rubor or calor, deep tenderness midline. Full range of motion of the knee and ankle without hesitation or limitation, pedal and posttibial pulses strong. No peripheral edema. CMS intact distally) Neurological: Alert, Oriented, Normal Cognition Psychiatric: Normal Affect, Normal Mood Skin Exam: Warm, Dry, Intact, Normal Color, No Rash Lymphatic: No Adenopathy Course - Vital Signs Last Recorded V/S: Last Vital Signs Temp 36.1 C 09/24/18 14:32 Pulse 102 H 09/24/18 14:32 Resp 18 09/24/18 14:32 BP 193/103 H 09/24/18 14:32 Pulse Ox 97 09/24/18 14:32 - Orders/Labs/Meds Orders: Active Orders 24 hr Category Date Time Status Ketorolac [Toradol] Med 09/24/18 17:27 Once 60 mg IM ONETIME ONE Departure - Departure Time of Disposition: 17:27 Disposition: Home, Self-Care 01 Condition: Good Clinical Impression: Tendinitis - Discharge Information Referrals: PCP,None [Primary Care Provider] - [facility] [Outside] [facility] [Outside] Forms: ED Department Discharge Additional Instructions: 1. Aleve 2 tabs a.m. and p.m. or ibuprofen 2-3 tabs 3 times daily as needed for pain 2. Follow-up in primary care - My Orders Last 24 Hours: My Active Orders 09/24/18 17:27 Ketorolac [Toradol] 60 mg IM ONETIME ONE - Assessment/Plan Last 24 Hours: My Active Orders 09/24/18 17:27 Ketorolac [Toradol] 60 mg IM ONETIME ONE
--- NOTE | 2018-09-24 16:25 | US ---
INDICATION: Left leg swelling for 1 day. COMPARISON: None available. FINDINGS: Examination is technically difficult because of body habitus. Portions of the distal femoral vein are not well seen. Ultrasound of the venous drainage of the left lower extremity shows no evidence of deep venous thrombosis. There is normal antegrade flow from the posterior tibial and popliteal veins superiorly through the common femoral vein. There is normal augmentation and compressibility of the veins. The left greater saphenous vein is widely patent. The right common femoral vein is widely patent. IMPRESSION: No evidence of deep or superficial venous thrombosis on ultrasound examination of the left lower extremity. Dictated by Morgan Ricci MD @ Sep 24 2018 4:23PM Signed by Dr. Morgan Ricci @ Sep 24 2018 4:24PM
[2018-09-24] MEDS ORDERED: Ketorolac 60 MG/2 ML SDV IM ONE (17:27)
== END 2018-09-24 17:58 | disposition home or self-care (01) ==
LOC: MW.ED 14:20
DX: M77.9 Enthesopathy, unspecified (principal); I10 Essential (primary) hypertension; E11.9 Type 2 diabetes mellitus without complications; E03.9 Hypothyroidism, unspecified; F41.9 Anxiety disorder, unspecified; F32.9 Major depressive disorder, single episode, unspecified; Z88.5 Allergy status to narcotic agent; Z91.013 Allergy to seafood; Z79.899 Other long term (current) drug therapy
CPT/HCPCS: 93971; 96372; 99283; J1885

== ENCOUNTER 2019-08-16 10:07 | Emergency (ER) | payer OTHER ==
[2019-08-16] MEDS ORDERED: Sodium Chloride 0.9% 2.5 ML Syringe FLUSH PRN (10:17)
[2019-08-16] MEDS ORDERED: Sodium Chloride 0.9% 10 ML Syringe FLUSH PRN (10:17)
[2019-08-16] MEDS ORDERED: Sodium Chloride 0.9% 1,000 ML IV ONE (10:17)
--- NOTE | 2019-08-16 10:32 | EDM.PDOC ---
ED HPI GENERAL MEDICAL PROBLEM - General Chief Complaint: Cardiovascular Problem Stated Complaint: DIZZY/SHAKY Time Seen by Provider: 08/16/19 10:28 Source of Information: Reports: Patient History Limitations: Reports: No Limitations - History of Present Illness INITIAL COMMENTS - FREE TEXT/NARRATIVE: HISTORY AND PHYSICAL: History of present illness: Patient is a 49-year-old female presents to the ED with complaint of dizziness. She states this morning she was sitting at her desk when she started feeling dizzy and light headed and vision got "black" for a second. She states she felt like she was going to pass out but denies any syncope. She states she took a couple of deep breaths and calmed her self down and felt better. She states now she just feels a little shaky. She denies chest pain, palpitations, shortness of breath, fevers, chills, cough, nausea, vomiting, abdominal pain, diarrhea, diaphoresis, headache, head injury or trauma. Past medical history of hypothyroidism and gastric bypass. She states she had a couple of similar episodes in the past week where she has felt shaky and a little dizzy but today was the only time she felt like she might pass out. Review of systems: As per history of present illness and below otherwise all systems reviewed and negative. Past medical history: As per history of present illness and as reviewed below otherwise noncontributory. Surgical history: As per history of present illness and as reviewed below otherwise noncontributory. Social history: No reported history of drug or alcohol abuse. Family history: As per history of present illness and as reviewed below otherwise noncontributory. Physical exam: General: Patient sitting comfortably in no acute distress and nontoxic appearing HEENT: Atraumatic, normocephalic, pupils reactive, negative for conjunctival pallor or scleral icterus, mucous membranes moist, throat clear, neck supple, nontender, trachea midline. No meningeal signs. Lungs: Clear to auscultation, breath sounds equal bilaterally, chest nontender. Heart: S1S2, regular, negative for clicks, rubs, or overt murmur. Abdomen: Soft, nondistended, nontender. Negative for masses or hepatosplenomegaly. Negative for costovertebral tenderness. No rigidity, rebound , guarding. Pelvis: Stable nontender. Genitourinary: Deferred. Rectal: Deferred. Extremities: Atraumatic, negative for cords or calf pain. Neurovascular unremarkable. Negative trousseau and chovstek sign Neuro: Awake, alert, oriented. Cranial nerves II through XII unremarkable. Cerebellum unremarkable. Motor and sensory unremarkable throughout. Exam nonfocal. Notes: Patient reports improvement in symptoms with IV fluids. 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 She is on calcium and magnesium supplementation. No EKG changes, symptoms not consistent with hypocalcemia. Diagnostics: CBC, CMP, troponin, EKG, magnesium Therapeutics: 1L NS IV Prescriptions: none Impression: Dizziness, pre-syncope Plan: Follow up with primary care provider Return to ED as needed as discussed Definitive disposition and diagnosis as appropriate pending reevaluation and review of above. - Related Data Allergies Allergy/AdvReac Type Severity Reaction Status Date / Time codeine Allergy Airway Verified 08/16/19 10:18 Tightness morphine Allergy Airway Verified 08/16/19 10:18 Tightness shrimp Allergy Airway Verified 08/16/19 10:18 Tightness Home Meds: Home Meds Levothyroxine Sodium [Synthroid] 224 mcg PO DAILY 10/22/17 [History] buPROPion HCl [Wellbutrin Xl] 450 mg PO DAILY 10/22/17 [History] Calcium Carbonate [Calcium] 600 mg PO TID 03/25/18 [History] EPINEPHrine [Epipen] 0.3 mg IM ONETIME #1 dose 03/25/18 [Rx] Cholecalciferol (Vitamin D3) [Vitamin D3] 5,000 unit PO ASDIRECTED 08/16/19 [ History] Past Medical History HEENT History: Reports: Other (See Below) Other HEENT History: wears glasses Cardiovascular History: Reports: Other (See Below) Other Cardiovascular History: HTN in the past-not since wt loss Gastrointestinal History: Reports: None Genitourinary History: Reports: None 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 , Musculoskeletal History: Reports: Arthritis Neurological History: Reports: Migraines Psychiatric History: Reports: Anxiety, Depression, Suicide Attempt Endocrine/Metabolic History: Reports: Diabetes, Type II, Hypothyroidism, Obesity /BMI 30+ Other Endocrine/Metabolic History: type II diabetes prior to gastric sleeve - Infectious Disease History Infectious Disease History: Reports: Chicken Pox - Past Surgical History Head Surgeries/Procedures: Reports: None HEENT Surgical History: Reports: Tonsillectomy GI Surgical History: Reports: Appendectomy, Bariatric Procedure, Cholecystectomy Other GI Surgeries/Procedures: gastric sleeve Female Surgical History: Reports: Section, Endometrial Ablation, Salpingo-Oophorectomy, Tubal Ligation Other Female Surgeries/Procedures: laparoscopy with S&O for ectopic , c/section x4 Endocrine Surgical History: Reports: Thyroidectomy Social & Family History - Family History Family Medical History: Noncontributory - Caffeine Use Caffeine Use: Reports: Soda ED ROS GENERAL - Review of Systems Review Of Systems: Comprehensive ROS is negative, except as noted in HPI. ED EXAM, GENERAL - Physical Exam Exam: See Below (see dictation) Course - Vital Signs Last Recorded V/S: Last Vital Signs Temp 97.2 F 08/16/19 10:16 Pulse 94 08/16/19 10:16 Resp 18 08/16/19 10:16 BP 172/99 H 08/16/19 10:16 Pulse Ox 98 08/16/19 10:16 - Orders/Labs/Meds Orders: Active Orders 24 hr Category Date Time Status EKG Documentation Completion [RC] STAT Care 08/16/19 10:13 Active POC Glucose [Blood Glucose Check, Bedside] [RC] ONETIME Care 08/16/19 10:12 Active Sodium Chloride 0.9% [Saline Flush] Med 08/16/19 10:17 Active 10 ml FLUSH ASDIRECTED PRN Sodium Chloride 0.9% [Saline Flush] Med 08/16/19 10:17 Active 2.5 ml FLUSH ASDIRECTED PRN Saline Lock Insert [OM.PC] Stat Oth 08/16/19 10:17 Ordered Medication Orders Sodium Chloride (Saline Flush) 10 ml FLUSH ASDIRECTED PRN PRN Reason: Keep Vein Open Last Admin: 08/16/19 10:31 Dose: 10 ml Sodium Chloride (Saline Flush) 2.5 ml FLUSH ASDIRECTED PRN PRN Reason: Keep Vein Open Last Admin: 08/16/19 10:31 Dose: 2.5 ml Labs: Laboratory Tests 08/16/19 08/16/19 08/16/19 Range/Units 10:28 10:28 10:28 WBC 9.75 (4.0-11.0) K/uL RBC 4.58 (4.30-5.90) M/uL Hgb 13.4 (12.0-16.0) g/dL Hct 40.6 (36.0-46.0) % MCV 88.6 (80.0-98.0) fL MCH 29.3 (27.0-32.0) pg MCHC 33.0 (31.0-37.0) g/dL RDW Std Deviation 42.8 (28.0-62.0) fl RDW Coeff of Servando 13 (11.0-15.0) % Plt Count 293 (150-400) K/uL MPV 9.40 (7.40-12.00) fL Neut % (Auto) 65.6 (48.0-80.0) % Lymph % (Auto) 27.0 (16.0-40.0) % Collin % (Auto) 6.3 (0.0-15.0) % Eos % (Auto) 0.9 (0.0-7.0) % Baso % (Auto) 0.2 (0.0-1.5) % Neut # (Auto) 6.4 H (1.4-5.7) K/uL Lymph # (Auto) 2.6 H (0.6-2.4) K/uL Collin # (Auto) 0.6 (0.0-0.8) K/uL Eos # (Auto) 0.1 (0.0-0.7) K/uL Baso # (Auto) 0.0 (0.0-0.1) K/uL Nucleated RBC % 0.0 /100WBC Nucleated RBCs # 0 K/uL Sodium 140 (136-145) mmol/L Potassium 3.5 (3.5-5.1) mmol/L Chloride 102 (98-107) mmol/L Carbon Dioxide 28.0 (21.0-32.0) mmol/L BUN 13 (7.0-18.0) mg/dL Creatinine 1.0 (0.6-1.0) mg/dL Est Cr Clr Drug Dosing 49.95 mL/min Estimated GFR (MDRD) 59.4 ml/min Glucose 116 H (74-106) mg/dL POC Glucose (60-110) mg/dL Calcium 7.7 L (8.5-10.1) mg/dL Magnesium 1.7 L (1.8-2.4) mg/dL Total Bilirubin 0.2 (0.2-1.0) mg/dL AST 18 (15-37) IU/L ALT 34 (14-63) IU/L Alkaline Phosphatase 107 (46-116) U/L Troponin I < 0.050 (0.000-0.056) ng/mL Total Protein 7.5 (6.4-8.2) g/dL Albumin 3.4 (3.4-5.0) g/dL Globulin 4.1 H (2.6-4.0) g/dL Albumin/Globulin Ratio 0.8 L (0.9-1.6) 08/16/19 Range/Units 10:29 WBC (4.0-11.0) K/uL RBC (4.30-5.90) M/uL Hgb (12.0-16.0) g/dL Hct (36.0-46.0) % MCV (80.0-98.0) fL MCH (27.0-32.0) pg MCHC (31.0-37.0) g/dL RDW Std Deviation (28.0-62.0) fl RDW Coeff of Servando (11.0-15.0) % Plt Count (150-400) K/uL MPV (7.40-12.00) fL Neut % (Auto) (48.0-80.0) % Lymph % (Auto) (16.0-40.0) % Collin % (Auto) (0.0-15.0) % Eos % (Auto) (0.0-7.0) % Baso % (Auto) (0.0-1.5) % Neut # (Auto) (1.4-5.7) K/uL Lymph # (Auto) (0.6-2.4) K/uL Collin # (Auto) (0.0-0.8) K/uL Eos # (Auto) (0.0-0.7) K/uL Baso # (Auto) (0.0-0.1) K/uL Nucleated RBC % /100WBC Nucleated RBCs # K/uL Sodium (136-145) mmol/L Potassium (3.5-5.1) mmol/L Chloride (98-107) mmol/L Carbon Dioxide (21.0-32.0) mmol/L BUN (7.0-18.0) mg/dL Creatinine (0.6-1.0) mg/dL Est Cr Clr Drug Dosing mL/min Estimated GFR (MDRD) ml/min Glucose (74-106) mg/dL POC Glucose 97 (60-110) mg/dL Calcium (8.5-10.1) mg/dL Magnesium (1.8-2.4) mg/dL Total Bilirubin (0.2-1.0) mg/dL AST (15-37) IU/L ALT (14-63) IU/L Alkaline Phosphatase (46-116) U/L Troponin I (0.000-0.056) ng/mL Total Protein (6.4-8.2) g/dL Albumin (3.4-5.0) g/dL Globulin (2.6-4.0) g/dL Albumin/Globulin Ratio (0.9-1.6) Meds: Medications Generic Name Dose Route Start Last Admin Trade Name Freq PRN Reason Stop Dose Admin Sodium Chloride 10 ml 08/16/19 10:17 08/16/19 10:31 Saline Flush FLUSH 10 ml ASDIRECTED PRN Administration Keep Vein Open Sodium Chloride 2.5 ml 08/16/19 10:17 08/16/19 10:31 Saline Flush FLUSH 2.5 ml ASDIRECTED PRN Administration Keep Vein Open Discontinued Medications Generic Name Dose Route Start Last Admin Trade Name Freq PRN Reason Stop Dose Admin Sodium Chloride 1,000 mls @ 999 mls/hr 08/16/19 10:17 08/16/19 10:31 Normal Saline IV 08/16/19 11:17 999 mls/hr STAT ONE Administration Departure - Departure Time of Disposition: 11:48 Disposition: Home, Self-Care 01 Condition: Good Clinical Impression: Dizziness, Pre-syncope [facility]errals: [facility] [Primary Care Provider] - Forms: ED Department Discharge Additional Instructions: The following information is given to patients seen in the emergency department who are being discharged to home. This information is to outline your options for follow-up care. We provide all patients seen in our emergency department with a follow-up referral. The need for follow-up, as well as the timing and circumstances, are variable depending upon the specifics of your emergency department visit. If you don't have a primary care physician on staff, we will provide you with a referral. We always advise you to contact your personal physician following an emergency department visit to inform them of the circumstance of the visit and for follow-up with them and/or the need for any referrals to a consulting specialist. The emergency department will also refer you to a specialist when appropriate. This referral assures that you have the opportunity for follow-up care with a specialist. All of these measure are taken in an effort to provide you with optimal care, which includes your follow-up. Under all circumstances we always encourage you to contact your private physician who remains a resource for coordinating your care. When calling for follow-up care, please make the office aware that this follow-up is from your recent emergency room visit. If for any reason you are refused follow-up, please contact the [facility] Emergency Department at and asked to speak to the emergency department charge nurse. [facility] [address] [place] [address] [place] [address] Follow up with primary care provider Return to ED as needed as discussed Sepsis Event Note - Evaluation Sepsis Screening Result: No Definite Risk - Focused Exam Vital Signs: Vital Signs Temp Pulse Resp BP Pulse Ox 08/16/19 10:16 97.2 F 94 18 172/99 H 98 Date Exam was Performed: 08/16/19 Time Exam was Performed: 11:48 - My Orders Last 24 Hours: My Active Orders 08/16/19 10:12 POC Glucose [Blood Glucose Check, Bedside] [RC] ONETIME 08/16/19 10:13 EKG Documentation Completion [RC] STAT 08/16/19 10:17 Sodium Chloride 0.9% [Saline Flush] 10 ml FLUSH ASDIRECTED PRN Sodium Chloride 0.9% [Saline Flush] 2.5 ml FLUSH ASDIRECTED PRN Saline Lock Insert [OM.PC] Stat - Assessment/Plan Last 24 Hours: My Active Orders 08/16/19 10:12 POC Glucose [Blood Glucose Check, Bedside] [] ONETIME 08/16/19 10:13 EKG Documentation Completion [] STAT 08/16/19 10:17 Sodium Chloride 0.9% [Saline Flush] 10 ml FLUSH ASDIRECTED PRN Sodium Chloride 0.9% [Saline Flush] 2.5 ml FLUSH ASDIRECTED PRN Saline Lock Insert [OM.PC] Stat
[2019-08-16 11:13] LABS: BLOOD UREA NITROGEN,BUN 13 mg/dL (7.0-18.0); CHLORIDE,CL 102 mmol/L (98-107); GLUCOSE RANDOM 116 mg/dL (74-106); POTASSIUM,K 3.5 mmol/L (3.5-5.1); SODIUM,NA 140 mmol/L (136-145)
== END 2019-08-16 12:08 | disposition home or self-care (01) ==
LOC: MW.ED 10:07
DX: R42 Dizziness and giddiness (principal); R55 Syncope and collapse; I10 Essential (primary) hypertension; E11.9 Type 2 diabetes mellitus without complications; E03.9 Hypothyroidism, unspecified; E66.9 Obesity, unspecified; Z68.42 Body mass index [BMI] 45.0-49.9, adult; F41.9 Anxiety disorder, unspecified; F32.9 Major depressive disorder, single episode, unspecified; Z79.899 Other long term (current) drug therapy
CPT/HCPCS: 36415; 80053; 82962; 83735; 84484; 85025; 93005; 96360; 99284; J7030; 99283

== ENCOUNTER 2019-08-21 14:57 | Observation (INO) | payer OTHER ==
[2019-08-21] MEDS ORDERED: Sodium Chloride 0.9% 1,000 ML IV ONE (15:11)
[2019-08-21] MEDS ORDERED: Sodium Chloride 0.9% 10 ML Syringe FLUSH PRN (15:11)
[2019-08-21] MEDS ORDERED: Sodium Chloride 0.9% 2.5 ML Syringe FLUSH PRN (15:11)
[2019-08-21] MEDS ORDERED: Aspirin 81 MG Tab.Chew PO ONE (15:35)
--- NOTE | 2019-08-21 15:43 | EDM.PDOC ---
ED HPI GENERAL MEDICAL PROBLEM - General Chief Complaint: Neuro Symptoms/Deficits Stated Complaint: LIGHTHEADED/PAIN IN ARM Time Seen by Provider: 08/21/19 15:35 Source of Information: Reports: Patient History Limitations: Reports: No Limitations - History of Present Illness INITIAL COMMENTS - FREE TEXT/NARRATIVE: HISTORY AND PHYSICAL: History of present illness: Patient is a 49-year-old female presents to the ED with complaint of feeling like she is going to pass out. Patient states she has had a few episodes of this in the past week. She was seen in the ED 5 days ago and normal work up includes labs and EKG. Patient follow up with primary care provider and told to take magnesium and Dramamine. Patient states she was sitting today and around 1: 45pm she again felt like she was going to pass out. She states she gets a "sensation in her head" and eyes get blurry. She reports feeling a tingling on the left side of her face and pain in her left arm. She states it lasts no more than 30 seconds and reports she has to take deep breaths in order to "calm down. " She states she has not had any episodes of syncope. She denies any chest pain , shortness of breath, palpitations, headache, extremity or facial weakness, difficulty speaking, dizziness. Past medical history significant for hypothyroidism, recent thyroid labs unremarkable. Patient states she did take an Excedrin afterwards. She states she did not have a headache but states she has a history of migraines and thought it could be an atypical migraine presentation. Review of systems: As per history of present illness and below otherwise all systems reviewed and negative. Past medical history: As per history of present illness and as reviewed below otherwise noncontributory. Surgical history: As per history of present illness and as reviewed below otherwise noncontributory. Social history: No reported history of drug or alcohol abuse. Family history: As per history of present illness and as reviewed below otherwise noncontributory. Physical exam: General: Patient sitting comfortably in no acute distress and nontoxic appearing. Patient tearful on exam. HEENT: Horizontal nystagmus noted. Atraumatic, normocephalic, pupils reactive, negative for conjunctival pallor or scleral icterus, mucous membranes moist, throat clear, neck supple, nontender, trachea midline. No meningeal signs. Lungs: Clear to auscultation, breath sounds equal bilaterally, chest nontender. Heart: S1S2, regular, negative for clicks, rubs, or overt murmur. Abdomen: Soft, nondistended, nontender. Negative for masses or hepatosplenomegaly. Negative for costovertebral tenderness. No rigidity, rebound , guarding. Pelvis: Stable nontender. Genitourinary: Deferred. Rectal: Deferred. Extremities: Atraumatic, negative for cords or calf pain. Neurovascular unremarkable. Neuro: Awake, alert, oriented. Cranial nerves II through XII unremarkable. Cerebellum unremarkable. Motor and sensory unremarkable throughout. Exam nonfocal. Notes: Patient has vague left arm pain, no chest pain. She did take 250mg Aspirin (in Excedrin) prior to arrival, will give her 81mg aspirin here. Diagnostics: CBC, CMP, troponin, EKG, head CT Therapeutics: 1L NS IV ASA Prescriptions: Impression: TIA Plan: Discussed with Dr. Gill, patient will be admitted for TIA work up. Definitive disposition and diagnosis as appropriate pending reevaluation and review of above. L arm ache Pain Score (Numeric/FACES): 3 - Related Data Allergies Allergy/AdvReac Type Severity Reaction Status Date / Time codeine Allergy Airway Verified 08/21/19 15:12 Tightness morphine Allergy Airway Verified 08/21/19 15:12 Tightness shrimp Allergy Airway Verified 08/21/19 15:12 Tightness Home Meds: Home Meds Levothyroxine Sodium [Synthroid] 224 mcg PO DAILY 10/22/17 [History] buPROPion HCL [Wellbutrin Xl] 450 mg PO DAILY 10/22/17 [History] Calcium Carbonate [Calcium] 600 mg PO TID 03/25/18 [History] EPINEPHrine [Epipen] 0.3 mg IM ONETIME #1 dose 03/25/18 [Rx] Cholecalciferol (Vitamin D3) [Vitamin D3] 5,000 unit PO ASDIRECTED 08/16/19 [ History] Past Medical History HEENT History: Reports: Other (See Below) Other HEENT History: wears glasses Cardiovascular History: Reports: Other (See Below) Other Cardiovascular History: HTN in the past-not since wt loss Respiratory History: Reports: None Gastrointestinal History: Reports: None Genitourinary History: Reports: None 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 , Musculoskeletal History: Reports: Arthritis Neurological History: Reports: Migraines Psychiatric History: Reports: Anxiety, Depression, Suicide Attempt Endocrine/Metabolic History: Reports: Diabetes, Type II, Hypothyroidism, Obesity /BMI 30+ Other Endocrine/Metabolic History: type II diabetes prior to gastric sleeve Hematologic History: Reports: None Immunologic History: Reports: None Oncologic (Cancer) History: Reports: None Dermatologic History: Reports: None - Infectious Disease History Infectious Disease History: Reports: Chicken Pox - Past Surgical History Head Surgeries/Procedures: Reports: None HEENT Surgical History: Reports: Tonsillectomy GI Surgical History: Reports: Appendectomy, Bariatric Procedure, Cholecystectomy Other GI Surgeries/Procedures: gastric sleeve Female Surgical History: Reports: Section, Endometrial Ablation, Salpingo-Oophorectomy, Tubal Ligation Other Female Surgeries/Procedures: laparoscopy with S&O for ectopic , c/section x4 Endocrine Surgical History: Reports: Thyroidectomy Social & Family History - Family History Family Medical History: Noncontributory - Tobacco Use Smoking Status *Q: Never Smoker - Caffeine Use Caffeine Use: Reports: Soda - Recreational Drug Use Recreational Drug Use: No ED ROS GENERAL - Review of Systems Review Of Systems: Comprehensive ROS is negative, except as noted in HPI. ED EXAM, NEURO - Physical Exam Exam: See Below (see dictation) Course - Vital Signs Last Recorded V/S: Last Vital Signs Temp 97.3 F 08/21/19 15:08 Pulse 101 H 08/21/19 15:08 Resp 16 08/21/19 15:08 BP 171/96 H 08/21/19 15:08 Pulse Ox 98 08/21/19 15:08 Orthostatic Blood Pressure [ 150/76 Standing] Orthostatic Blood Pressure [ 148/83 Sitting] Orthostatic Blood Pressure [ 142/77 Supine] - Orders/Labs/Meds Orders: Active Orders 24 hr Category Date Time Status EKG Documentation Completion [RC] STAT Care 08/21/19 15:11 Active Orthostatic Vital Signs [RC] ASDIRECTED Care 08/21/19 15:45 Active Sodium Chloride 0.9% [Saline Flush] Med 08/21/19 15:11 Active 10 ml FLUSH ASDIRECTED PRN Sodium Chloride 0.9% [Saline Flush] Med 08/21/19 15:11 Active 2.5 ml FLUSH ASDIRECTED PRN Saline Lock Insert [OM.PC] Stat Oth 08/21/19 15:11 Ordered Medication Orders Sodium Chloride (Saline Flush) 10 ml FLUSH ASDIRECTED PRN PRN Reason: Keep Vein Open Sodium Chloride (Saline Flush) 2.5 ml FLUSH ASDIRECTED PRN PRN Reason: Keep Vein Open Labs: Laboratory Tests 08/21/19 08/21/19 08/21/19 Range/Units 15:23 15:23 15:23 WBC 9.94 (4.0-11.0) K/uL RBC 4.36 (4.30-5.90) M/uL Hgb 12.7 (12.0-16.0) g/dL Hct 38.3 (36.0-46.0) % MCV 87.8 (80.0-98.0) fL MCH 29.1 (27.0-32.0) pg MCHC 33.2 (31.0-37.0) g/dL RDW Std Deviation 42.2 (28.0-62.0) fl RDW Coeff of Servando 13 (11.0-15.0) % Plt Count 277 (150-400) K/uL MPV 9.30 (7.40-12.00) fL Neut % (Auto) 72.6 (48.0-80.0) % Lymph % (Auto) 21.5 (16.0-40.0) % [place]oke % (Auto) 4.9 (0.0-15.0) % Eos % (Auto) 0.8 (0.0-7.0) % Baso % (Auto) 0.2 (0.0-1.5) % Neut # (Auto) 7.2 H (1.4-5.7) K/uL Lymph # (Auto) 2.1 (0.6-2.4) K/uL [place] # (Auto) 0.5 (0.0-0.8) K/uL Eos # (Auto) 0.1 (0.0-0.7) K/uL Baso # (Auto) 0.0 (0.0-0.1) K/uL Nucleated RBC % 0.0 /100WBC Nucleated RBCs # 0 K/uL INR 0.91 Sodium 140 (136-145) mmol/L Potassium 3.2 L (3.5-5.1) mmol/L Chloride 103 (98-107) mmol/L Carbon Dioxide 24.9 (21.0-32.0) mmol/L BUN 13 (7.0-18.0) mg/dL Creatinine 0.8 (0.6-1.0) mg/dL Est Cr Clr Drug Dosing 78.23 mL/min Estimated GFR (MDRD) > 60.0 ml/min Glucose 150 H (74-106) mg/dL Calcium 7.8 L (8.5-10.1) mg/dL Total Bilirubin 0.2 (0.2-1.0) mg/dL AST 23 (15-37) IU/L ALT 27 (14-63) IU/L Alkaline Phosphatase 104 (46-116) U/L Troponin I < 0.050 (0.000-0.056) ng/mL Total Protein 7.1 (6.4-8.2) g/dL Albumin 3.2 L (3.4-5.0) g/dL Globulin 3.9 (2.6-4.0) g/dL Albumin/Globulin Ratio 0.8 L (0.9-1.6) Meds: Medications Generic Name Dose Route Start Last Admin Trade Name Freq PRN Reason Stop Dose Admin Sodium Chloride 10 ml 08/21/19 15:11 Saline Flush FLUSH ASDIRECTED PRN Keep Vein Open Sodium Chloride 2.5 ml 08/21/19 15:11 Saline Flush FLUSH ASDIRECTED PRN Keep Vein Open Discontinued Medications Generic Name Dose Route Start Last Admin Trade Name Freq PRN Reason Stop Dose Admin Aspirin 81 mg 08/21/19 15:35 08/21/19 16:27 Aspirin PO 08/21/19 15:36 81 mg ONETIME ONE Administration Sodium Chloride 1,000 mls @ 999 mls/hr 08/21/19 15:11 08/21/19 15:24 Normal Saline IV 08/21/19 16:11 999 mls/hr STAT ONE Administration Departure - Departure Time of Disposition: 17:03 Disposition: Home, Self-Care 01 Condition: Good Clinical Impression: TIA (transient ischemic attack) - Discharge Information Referrals: Darron Wilson MD [Primary Care Provider] - Forms: ED Department Discharge Sepsis Event Note - Evaluation Sepsis Screening Result: No Definite Risk - Focused Exam Vital Signs: Vital Signs Temp Pulse Resp BP Pulse Ox 08/21/19 15:08 97.3 F 101 H 16 171/96 H 98 Date Exam was Performed: 08/21/19 Time Exam was Performed: 17:02 - My Orders Last 24 Hours: My Active Orders 08/21/19 15:11 EKG Documentation Completion [RC] STAT Sodium Chloride 0.9% [Saline Flush] 10 ml FLUSH ASDIRECTED PRN Sodium Chloride 0.9% [Saline Flush] 2.5 ml FLUSH ASDIRECTED PRN Saline Lock Insert [OM.PC] Stat 08/21/19 15:45 Orthostatic Vital Signs [RC] ASDIRECTED - Assessment/Plan Last 24 Hours: My Active Orders 08/21/19 15:11 EKG Documentation Completion [RC] STAT Sodium Chloride 0.9% [Saline Flush] 10 ml FLUSH ASDIRECTED PRN Sodium Chloride 0.9% [Saline Flush] 2.5 ml FLUSH ASDIRECTED PRN Saline Lock Insert [OM.PC] Stat 08/21/19 15:45 Orthostatic Vital Signs [RC] ASDIRECTED
--- NOTE | 2019-08-21 16:12 | CT ---
Head CT Technique: Multiple axial sections through the brain were obtained. Comparison: Prior head CT study of 12/11/17. Findings: Ventricles along with basal cisterns and sulci over the convexities are within normal limits for the patient's age. No abnormal parenchymal densities are seen. No evidence of intracranial hemorrhage. No midline shift or mass-effect is appreciated. Bone window settings were reviewed. Visualized paranasal sinuses show nothing acute. Mastoid sinuses also show nothing acute. No acute calvarial abnormality is appreciated. Incomplete posterior arch of C1 is seen believed to be normal variant. Impression: 1. Nothing acute is appreciated on noncontrast head CT exam. Diagnostic code #2 This report was dictated in MDT
[2019-08-21 16:17] LABS: BLOOD UREA NITROGEN,BUN 13 mg/dL (7.0-18.0); CARBON DIOXIDE,CO2 24.9 mmol/L (21.0-32.0); CHLORIDE,CL 103 mmol/L (98-107); GLUCOSE RANDOM 150 mg/dL (74-106); POTASSIUM,K 3.2 mmol/L (3.5-5.1); SODIUM,NA 140 mmol/L (136-145)
[2019-08-21] MEDS ORDERED: Potassium Chloride 20 MEQ Tab.ER PO ONE (17:58)
--- NOTE | 2019-08-21 18:01 | PCM.HP.2 ---
H&P History of Present Illness - General Date of Service: 08/21/19 Admit Problem/Dx: Admission Diagnosis/Problem Admission Diagnosis/Problem TIA, Transient ischemic attack - History of Present Illness Initial Comments - Free Text/Narative: Patient is a 49-year-old female with PMH of migraines, hypothyroidism, obesity presents to the ED with c/o feeling she is going to pass out. Patient states she has 3 episodes in past 1 week where she thought she was going to pass out. She was seen in the ER on Sunday after work up was discharged, she followed up with her PCP on Sunday ans asked asked to take Dramamine and her Mg supplements. Patient states she has another episode today so came to ER. Patient states that her episodes happen at work , while working, no definite trigger, she feels she is "unable to take deep breaths and her vision turns white and then to black". Today she felt tingling in her left face and arm along with aching pain. She denies any chest pain, shortness of breath, palpitations, headache, extremity or facial weakness, difficulty speaking, dizziness. Past medical history significant for hypothyroidism, recent thyroid labs unremarkable. Patient states she did take an Excedrin afterwards as she has h/o migraines although denied any active headache. Patient is being admitted for further management. L arm ache Pain Score (Numeric/FACES): 3 - Related Data Allergies/Adverse Reactions: Allergies Allergy/AdvReac Type Severity Reaction Status Date / Time codeine Allergy Airway Verified 08/21/19 21:44 Tightness morphine Allergy Airway Verified 08/21/19 21:44 Tightness Home Medications: Home Meds Levothyroxine Sodium [Synthroid] 224 mcg PO DAILY 10/22/17 [History] buPROPion HCL [Wellbutrin Xl] 450 mg PO DAILY 10/22/17 [History] Calcium Carbonate [Calcium] 600 mg PO TID 03/25/18 [History] EPINEPHrine [Epipen 2-[place]] 0.3 mg IM ONETIME #1 dose 03/25/18 [Rx] Cholecalciferol (Vitamin D3) [Vitamin D3] 5,000 unit PO ASDIRECTED 08/16/19 [ History] Aspirin 81 mg PO DAILY tab.chew 08/22/19 [Rx] amLODIPine [Norvasc] 5 mg PO DAILY #30 tablet 04/24/20 [Rx] Past Medical History HEENT History: Reports: Other (See Below) Other HEENT History: wears glasses Cardiovascular History: Reports: Other (See Below) Other Cardiovascular History: HTN in the past-not since wt loss Respiratory History: Reports: None Gastrointestinal History: Reports: None Genitourinary History: Reports: None [employer] History: Reports: Ectopic , Musculoskeletal History: Reports: Arthritis Neurological History: Reports: Migraines Psychiatric History: Reports: Anxiety, Depression, Suicide Attempt Endocrine/Metabolic History: Reports: Diabetes, Type II, Hypothyroidism, Obesity /BMI 30+ Other Endocrine/Metabolic History: type II diabetes prior to gastric sleeve Hematologic History: Reports: None Immunologic History: Reports: None Oncologic (Cancer) History: Reports: None Dermatologic History: Reports: None - Infectious Disease History Infectious Disease History: Reports: Chicken Pox - Past Surgical History Head Surgeries/Procedures: Reports: None HEENT Surgical History: Reports: Tonsillectomy GI Surgical History: Reports: Appendectomy, Bariatric Procedure, Cholecystectomy Other GI Surgeries/Procedures: gastric sleeve Female Surgical History: Reports: Section, Endometrial Ablation, Salpingo-Oophorectomy, Tubal Ligation Other Female Surgeries/Procedures: laparoscopy with S&O for ectopic , c/section x4 Endocrine Surgical History: Reports: Thyroidectomy Social & Family History - Family History Family Medical History: Noncontributory - Tobacco Use Smoking Status *Q: Never Smoker - Caffeine Use Caffeine Use: Reports: Soda - Recreational Drug Use Recreational Drug Use: No H&P Review of Systems - Review of Systems: Review Of Systems: See Below General: Denies: Fever, Chills, Malaise, Weakness HEENT: Denies: Dysphasia, Ear Pain Pulmonary: Reports: Shortness of Breath. Denies: Wheezing, Pleuritic Chest Pain Cardiovascular: Denies: Chest Pain, Palpitations, Dyspnea on Exertion Gastrointestinal: Denies: Abdominal Pain, Anorexia, Black Stool Genitourinary: Denies: Dysuria, Frequency, Burning Musculoskeletal: Reports: Shoulder Pain, Arm Pain. Denies: Neck Pain, Muscle Pain, Muscle Stiffness Skin: Denies: Cyanosis, Jaundice, Mottled Psychiatric: Denies: Confusion, Depression, Mood Lability Neurological: Denies: Confusion, Dizziness, Headache Hematologic/Lymphatic: Denies: Anemia, Easy Bleeding, Easy Bruising Exam - Exam Exam: See Below - Vital Signs Vital Signs: Last Vital Signs Temp 36.3 C 08/21/19 15:08 Pulse 101 H 08/21/19 15:08 Resp 16 08/21/19 15:08 BP 171/96 H 08/21/19 15:08 Pulse Ox 98 08/21/19 15:08 Orthostatic Blood Pressure [ 150/76 Standing] Orthostatic Blood Pressure [ 148/83 Sitting] Orthostatic Blood Pressure [ 142/77 Supine] Weight: 107.501 kg - Exam General: Alert, Oriented, Cooperative Neck: Supple, Trachea Midline Lungs: Clear to Auscultation, Normal Respiratory Effort Cardiovascular: Regular Rate, Regular Rhythm GI/Abdominal Exam: Normal Bowel Sounds, Soft, Non-Tender Peripheral Pulses: 3+: Dorsalis Pedis (L), Dorsalis Pedis (R) Neurological: Cranial Nerves Intact, Strength Equal Bilateral, Normal Speech Neuro Extensive - Mental Status: Alert, Oriented x3, Normal Mood/Affect, Normal Cognition, Memory Intact - Patient Data Lab Results Last 24 hrs: Laboratory Results - last 24 hr 08/21/19 08/21/19 08/21/19 Range/Units 15:23 15:23 15:23 WBC 9.94 (4.0-11.0) K/uL RBC 4.36 (4.30-5.90) M/uL Hgb 12.7 (12.0-16.0) g/dL Hct 38.3 (36.0-46.0) % MCV 87.8 (80.0-98.0) fL MCH 29.1 (27.0-32.0) pg MCHC 33.2 (31.0-37.0) g/dL RDW Std Deviation 42.2 (28.0-62.0) fl RDW Coeff of Servando 13 (11.0-15.0) % Plt Count 277 (150-400) K/uL MPV 9.30 (7.40-12.00) fL Neut % (Auto) 72.6 (48.0-80.0) % Lymph % (Auto) 21.5 (16.0-40.0) % [place] % (Auto) 4.9 (0.0-15.0) % Eos % (Auto) 0.8 (0.0-7.0) % Baso % (Auto) 0.2 (0.0-1.5) % Neut # (Auto) 7.2 H (1.4-5.7) K/uL Lymph # (Auto) 2.1 (0.6-2.4) K/uL [place] # (Auto) 0.5 (0.0-0.8) K/uL Eos # (Auto) 0.1 (0.0-0.7) K/uL Baso # (Auto) 0.0 (0.0-0.1) K/uL Nucleated RBC % 0.0 /100WBC Nucleated RBCs # 0 K/uL INR 0.91 Sodium 140 (136-145) mmol/L Potassium 3.2 L (3.5-5.1) mmol/L Chloride 103 (98-107) mmol/L Carbon Dioxide 24.9 (21.0-32.0) mmol/L BUN 13 (7.0-18.0) mg/dL Creatinine 0.8 (0.6-1.0) mg/dL Est Cr Clr Drug Dosing 78.23 mL/min Estimated GFR (MDRD) > 60.0 ml/min Glucose 150 H (74-106) mg/dL Calcium 7.8 L (8.5-10.1) mg/dL Total Bilirubin 0.2 (0.2-1.0) mg/dL AST 23 (15-37) IU/L ALT 27 (14-63) IU/L Alkaline Phosphatase 104 (46-116) U/L Troponin I < 0.050 (0.000-0.056) ng/mL Total Protein 7.1 (6.4-8.2) g/dL Albumin 3.2 L (3.4-5.0) g/dL Globulin 3.9 (2.6-4.0) g/dL Albumin/Globulin Ratio 0.8 L (0.9-1.6) Result Diagrams: 08/21/19 15:23 08/22/19 06:10 Sepsis Event Note - Evaluation Sepsis Screening Result: No Definite Risk - Focused Exam Vital Signs: Vital Signs Temp Pulse Resp BP Pulse Ox 08/21/19 15:08 36.3 C 101 H 16 171/96 H 98 Date Exam was Performed: 08/24/19 Time Exam was Performed: 12:14 - Problem List (1) Dizziness SNOMED Code(s): 158288990, 404463394 ICD Code: R42 - DIZZINESS AND GIDDINESS Status: Acute (2) Tingling of left arm and left side of face SNOMED Code(s): 06852218, 906289761, 890123778 ICD Code: R20.2 - PARESTHESIA OF SKIN Status: Acute Problem List Initiated/Reviewed/Updated: Yes Orders Last 24hrs: Active Orders 24 hr Category Date Time Status Admission Status [Patient Status] [ADT] Stat ADT 08/21/19 17:03 Active Ambulate [RC] ASDIRECTED Care 08/21/19 17:47 Active Antiembolic Devices [RC] PER UNIT ROUTINE Care 08/21/19 17:49 Active EKG Documentation Completion [RC] STAT Care 08/21/19 15:11 Active Orthostatic Vital Signs [RC] ASDIRECTED Care 08/21/19 15:45 Active Oxygen Therapy [RC] PRN Care 08/21/19 17:48 Active Pulse Oximetry [RC] PRN Care 08/21/19 17:48 Active VTE/DVT Education [RC] PER UNIT ROUTINE Care 08/21/19 17:48 Active Vital Signs [RC] Q4H Care 08/21/19 17:48 Active Heart Healthy Diet [DIET] Diet 08/22/19 Breakfast Active BMP [BASIC METABOLIC PANEL,BMP] [CHEM] AM Lab 08/22/19 05:11 Ordered LIPID PANEL [CHEM] AM Lab 08/22/19 05:11 Ordered MAGNESIUM [CHEM] AM Lab 08/22/19 05:11 Ordered MAGNESIUM [CHEM] Routine Lab 08/21/19 15:23 Received PHOSPHORUS [CHEM] AM Lab 08/22/19 05:11 Ordered PHOSPHORUS [CHEM] Routine Lab 08/21/19 15:23 Received TSH [CHEM] Routine Lab 08/21/19 15:23 Received Potassium Chloride [Klor-Con M20] Med 08/21/19 17:58 Once 40 meq PO ONETIME ONE Sodium Chloride 0.9% [Saline Flush] Med 08/21/19 15:11 Active 10 ml FLUSH ASDIRECTED PRN Sodium Chloride 0.9% [Saline Flush] Med 08/21/19 15:11 Active 2.5 ml FLUSH ASDIRECTED PRN Saline Lock Insert [OM.PC] Stat Oth 08/21/19 15:11 Ordered Sequential Compression Device [OM.PC] Per Unit Routine Oth 08/21/19 17:48 Ordered Resuscitation Status Routine Resus Stat 08/21/19 17:47 Ordered Medication Orders Potassium Chloride (Klor-Con M20) 40 meq PO ONETIME ONE Stop: 08/21/19 17:59 Sodium Chloride (Saline Flush) 10 ml FLUSH ASDIRECTED PRN PRN Reason: Keep Vein Open Sodium Chloride (Saline Flush) 2.5 ml FLUSH ASDIRECTED PRN PRN Reason: Keep Vein Open Assessment/Plan Comment:: 49 y/o F admitted for possible TIA Hypertensive in ER, no prior history, will start amlodipine Will obtain MRI brain, MRA head and neck Obtain 2D ECHO Obtain TSH, lipid profile, Lipid profile, HbA1c Cont to trend troponin Monitor and replete electrolytes SCD for dvt ppx
[2019-08-21] MEDS ORDERED: LORazepam 2 MG/ML SDV IVPUSH PRN (18:06)
[2019-08-21 19:33] LABS: HEMOGLOBIN A1C 5.6 % (4.5-6.2)
[2019-08-21] MEDS ORDERED: Magnesium Oxide 400 MG Tab PO ONE (19:40)
[2019-08-21] MEDS: amLODIPine 5 MG Tab PO SCH (20:01)
--- NOTE | 2019-08-21 20:49 | CR ---
Chest: Portable view of the chest was obtained. Comparison: No prior chest imaging is available. Heart size is normal. Tortuous thoracic aorta is seen. Lungs are clear with no acute parenchymal change. Bony structures are grossly intact. Surgical clips are seen within the base of the neck. Impression: 1. Findings as noted above. 2. Nothing acute is appreciated on portable chest x-ray. Diagnostic code #2 This report was dictated in MDT
[2019-08-21] MEDS ORDERED: atorvaSTATin 20 MG Tab PO SCH (21:00)
[2019-08-22 06:54] LABS: BLOOD UREA NITROGEN,BUN 11 mg/dL (7.0-18.0); CARBON DIOXIDE,CO2 25.5 mmol/L (21.0-32.0); CHLORIDE,CL 103 mmol/L (98-107); GLUCOSE RANDOM 119 mg/dL (74-106); POTASSIUM,K 3.8 mmol/L (3.5-5.1); SODIUM,NA 138 mmol/L (136-145)
[2019-08-22] MEDS ORDERED: Levothyroxine 112 MCG Tab PO SCH (07:00)
[2019-08-22] MEDS ORDERED: buPROPion 150 MG Tab.ER PO SCH (09:00)
[2019-08-22] MEDS ORDERED: Aspirin 81 MG Tab.Chew PO SCH (09:00)
[2019-08-22] MEDS: amLODIPine 5 MG Tab PO SCH (09:18)
[2019-08-22] MEDS ORDERED: LORazepam 2 MG/ML SDV IVPUSH ONE (10:44)
[2019-08-22] MEDS ORDERED: Gadobenate Dimeglumine 529 MG/ML 20 ML SDV IVPUSH STA (12:44)
--- NOTE | 2019-08-22 13:23 | MR ---
MRI brain Technique: T1 sagittal and coronal; T1, T2, FLAIR and diffusion axial Comparison: Prior head CT study of 08/21/19. Findings: No acute diffusion abnormalities are appreciated. Normal signal void is seen within the major cerebral arteries within the skull base. No abnormal signal is seen within the brain parenchyma. No midline shift or mass-effect is appreciated. Ventricles along with basal cisterns and sulci over the convexities are within normal limits for the patient's age. Impression: 1. No abnormality is identified on MRI study of the brain. Diagnostic code #1 This report was dictated in MDT
--- NOTE | 2019-08-22 14:37 | MR ---
MR angiogram of brain Technique: [id number] MR angiogram study was obtained centered of the false pass of [place]. Multiple MIP images were obtained in multiple projections. Findings: Distal vertebral arteries are patent into the basilar artery. Posterior cerebral arteries appear patent. Carotid siphon is patent. Patency of the anterior and middle cerebral arteries are noted. No focal stenosis or occlusion is identified. No discrete aneurysm is appreciated. Impression: 1. No abnormality is appreciated on MR angiogram centered to the false pass of [place]. Diagnostic code #1 This report was dictated in MDT
--- NOTE | 2019-08-22 14:37 | MR ---
MR angiogram of neck (without and with intravenous contrast) Technique: Phase contrast MR angiogram study was obtained of the neck. Intravenous contrast then given and imaging obtained through the neck. Multiple MIP images were obtained. Findings: Both common carotid arteries are widely patent. Internal and proximal external carotid arteries on both sides are patent. No focal stenosis is seen. Both vertebral arteries are patent. Impression: 1. No abnormality is appreciated on MR angiogram of the neck. Diagnostic code #1 This report was dictated in MDT
--- NOTE | 2019-08-22 15:09 | PCM.DCSUM1 ---
Discharge Summary - Hospital Course Brief History: Patient is a 49-year-old female with PMH of migraines, hypothyroidism, obesity presents to the ED with c/o feeling she is going to pass out. Patient states she has 3 episodes in past 1 week where she thought she was going to pass out. She was seen in the ER on Sunday after work up was discharged, she followed up with her PCP on Sunday ans asked asked to take Dramamine and her Mg supplements. Patient states she has another episode today so came to ER. Patient states that her episodes happen at work , while working, no definite trigger, she feels she is "unable to take deep breaths and her vision turns white and then to black". Today she felt tingling in her left face and arm along with aching pain. She denies any chest pain, shortness of breath, palpitations, headache, extremity or facial weakness, difficulty speaking, dizziness. Past medical history significant for hypothyroidism, recent thyroid labs unremarkable. Patient states she did take an Excedrin afterwards as she has h/o migraines although denied any active headache. Patient is being admitted for further management. - Discharge Data Discharge Date: 08/22/19 Discharge Disposition: Home, Self-Care 01 Condition: Good - Referral to Home Health Primary Care Physician: Darron Wilson MD - Patient Summary/Data Consults: Consultations 08/22/19 08:00 PT Evaluation and Treatment [CONS] Routine Hospital Course: Admitting Diagnoses: Near Syncope Discharge Diagnoses: Near syncope Other PMH: Migraines Hypothyroidism obesity Nena was admitted secondary to near syncope. She was evaluated thoroughly, Head CT negative. MRI head and MRA head and neck obtained, which were unremarkable. Telemetry has been normal, no reoccurrence of symptoms during her stay. Labwork otherwise WNL. Elevated BP noted in the ED, she was started on Amlodipine 5 mg daily. this will be continued on discharge. She is to monitor BP at home, she verbalized understanding. She will be discharged home today with ZIO patch in place for further evaluation. I will also sent PT referral as outpatient for vestibular work up. She is to return to ED or clinic if concerns should arise. Follow up with Neurology and PCP as outpatient has been set up. - Patient Instructions Diet: Heart Healthy Diet Activity: As Tolerated, No Strenuous Activities, Rest and Relax Today Showering/Bathing: May Shower Notify Provider of: Fever, Increased Pain, Swelling and Redness, Drainage, Nausea and/or Vomiting Other/Special Instructions: Monitor blood pressures every other day prior to taking Amlodipine. Keep log. If blood pressure dips to 100-110 on the top then stop and wait for follow up with Primary care provider. - Discharge Plan *PRESCRIPTION DRUG MONITORING PROGRAM REVIEWED*: Not Applicable *COPY OF PRESCRIPTION DRUG MONITORING REPORT IN PATIENT JAIRO: Not Applicable Prescriptions/Med Rec: amLODIPine [Norvasc] 5 mg PO DAILY #30 tablet Home Medications: Home Meds Levothyroxine Sodium [Synthroid] 224 mcg PO DAILY 10/22/17 [History] buPROPion HCL [Wellbutrin Xl] 450 mg PO DAILY 10/22/17 [History] Calcium Carbonate [Calcium] 600 mg PO TID 03/25/18 [History] EPINEPHrine [Epipen 2-[place]] 0.3 mg IM ONETIME #1 dose 03/25/18 [Rx] Cholecalciferol (Vitamin D3) [Vitamin D3] 5,000 unit PO ASDIRECTED 08/16/19 [ History] Aspirin 81 mg PO DAILY tab.chew 08/22/19 [Rx] amLODIPine [Norvasc] 5 mg PO DAILY #30 tablet 08/22/19 [Rx] Oxygen Therapy Mode: Room Air Referrals: Yaritza Penaloza MD [Physician] - 08/26/19 1:00 pm Darron Wilson MD [Primary Care Provider] - 09/02/19 2:00 pm - Discharge Summary/Plan Comment DC Time >30 min.: No - Patient Data Vitals - Most Recent: Last Vital Signs Temp 98.2 F 08/22/19 11:30 Pulse 85 08/22/19 11:30 Resp 17 08/22/19 11:30 BP 125/69 08/22/19 11:30 Pulse Ox 96 08/22/19 11:30 Orthostatic Blood Pressure [ 150/76 Standing] Orthostatic Blood Pressure [ 148/83 Sitting] Orthostatic Blood Pressure [ 142/77 Supine] Weight - Most Recent: 110 kg I&O - Last 24 hours: Intake & Output 08/21/19 08/22/19 08/22/19 22:59 06:59 14:59 Intake Total 400 Output Total 800 Balance -400 Lab Results - Last 24 hrs: Laboratory Results - last 24 hr 08/21/19 08/21/19 08/21/19 Range/Units 15:20 15:23 15:23 WBC 9.94 (4.0-11.0) K/uL RBC 4.36 (4.30-5.90) M/uL Hgb 12.7 (12.0-16.0) g/dL Hct 38.3 (36.0-46.0) % MCV 87.8 (80.0-98.0) fL MCH 29.1 (27.0-32.0) pg MCHC 33.2 (31.0-37.0) g/dL RDW Std Deviation 42.2 (28.0-62.0) fl RDW Coeff of Servando 13 (11.0-15.0) % Plt Count 277 (150-400) K/uL MPV 9.30 (7.40-12.00) fL Neut % (Auto) 72.6 (48.0-80.0) % Lymph % (Auto) 21.5 (16.0-40.0) % [place] % (Auto) 4.9 (0.0-15.0) % Eos % (Auto) 0.8 (0.0-7.0) % Baso % (Auto) 0.2 (0.0-1.5) % Neut # (Auto) 7.2 H (1.4-5.7) K/uL Lymph # (Auto) 2.1 (0.6-2.4) K/uL [place] # (Auto) 0.5 (0.0-0.8) K/uL Eos # (Auto) 0.1 (0.0-0.7) K/uL Baso # (Auto) 0.0 (0.0-0.1) K/uL Nucleated RBC % 0.0 /100WBC Nucleated RBCs # 0 K/uL INR 0.91 Sodium (136-145) mmol/L Potassium (3.5-5.1) mmol/L Chloride (98-107) mmol/L Carbon Dioxide (21.0-32.0) mmol/L BUN (7.0-18.0) mg/dL Creatinine (0.6-1.0) mg/dL Est Cr Clr Drug Dosing mL/min Estimated GFR (MDRD) ml/min Glucose (74-106) mg/dL Hemoglobin A1c 5.6 (4.5-6.2) % Calcium (8.5-10.1) mg/dL Phosphorus (2.6-4.7) mg/dL Magnesium (1.8-2.4) mg/dL Total Bilirubin (0.2-1.0) mg/dL AST (15-37) IU/L ALT (14-63) IU/L Alkaline Phosphatase (46-116) U/L Troponin I (0.000-0.056) ng/mL Total Protein (6.4-8.2) g/dL Albumin (3.4-5.0) g/dL Globulin (2.6-4.0) g/dL Albumin/Globulin Ratio (0.9-1.6) Triglycerides (0-200) mg/dL Cholesterol (50-200) mg/dL LDL Cholesterol, Calc (60-180) mg/dL VLDL Cholesterol (5-55) mg/dL HDL Cholesterol (40-60) mg/dL Cholesterol/HDL Ratio (3.3-6.0) TSH 3rd Generation (0.36-3.74) uIU/mL 08/21/19 08/21/19 08/21/19 Range/Units 15:23 15:23 18:24 WBC (4.0-11.0) K/uL RBC (4.30-5.90) M/uL Hgb (12.0-16.0) g/dL Hct (36.0-46.0) % MCV (80.0-98.0) fL MCH (27.0-32.0) pg MCHC (31.0-37.0) g/dL RDW Std Deviation (28.0-62.0) fl RDW Coeff of Servando (11.0-15.0) % Plt Count (150-400) K/uL MPV (7.40-12.00) fL Neut % (Auto) (48.0-80.0) % Lymph % (Auto) (16.0-40.0) % [place] % (Auto) (0.0-15.0) % Eos % (Auto) (0.0-7.0) % Baso % (Auto) (0.0-1.5) % Neut # (Auto) (1.4-5.7) K/uL Lymph # (Auto) (0.6-2.4) K/uL [place] # (Auto) (0.0-0.8) K/uL Eos # (Auto) (0.0-0.7) K/uL Baso # (Auto) (0.0-0.1) K/uL Nucleated RBC % /100WBC Nucleated RBCs # K/uL INR Sodium 140 (136-145) mmol/L Potassium 3.2 L (3.5-5.1) mmol/L Chloride 103 (98-107) mmol/L Carbon Dioxide 24.9 (21.0-32.0) mmol/L BUN 13 (7.0-18.0) mg/dL Creatinine 0.8 (0.6-1.0) mg/dL Est Cr Clr Drug Dosing 78.23 mL/min Estimated GFR (MDRD) > 60.0 ml/min Glucose 150 H (74-106) mg/dL Hemoglobin A1c (4.5-6.2) % Calcium 7.8 L (8.5-10.1) mg/dL Phosphorus 3.1 (2.6-4.7) mg/dL Magnesium 1.7 L (1.8-2.4) mg/dL Total Bilirubin 0.2 (0.2-1.0) mg/dL AST 23 (15-37) IU/L ALT 27 (14-63) IU/L Alkaline Phosphatase 104 (46-116) U/L Troponin I < 0.050 < 0.050 (0.000-0.056) ng/mL Total Protein 7.1 (6.4-8.2) g/dL Albumin 3.2 L (3.4-5.0) g/dL Globulin 3.9 (2.6-4.0) g/dL Albumin/Globulin Ratio 0.8 L (0.9-1.6) Triglycerides (0-200) mg/dL Cholesterol (50-200) mg/dL LDL Cholesterol, Calc (60-180) mg/dL VLDL Cholesterol (5-55) mg/dL HDL Cholesterol (40-60) mg/dL Cholesterol/HDL Ratio (3.3-6.0) TSH 3rd Generation 1.02 (0.36-3.74) uIU/mL 08/21/19 08/22/19 Range/Units 21:18 06:10 WBC (4.0-11.0) K/uL RBC (4.30-5.90) M/uL Hgb (12.0-16.0) g/dL Hct (36.0-46.0) % MCV (80.0-98.0) fL MCH (27.0-32.0) pg MCHC (31.0-37.0) g/dL RDW Std Deviation (28.0-62.0) fl RDW Coeff of Servando (11.0-15.0) % Plt Count (150-400) K/uL MPV (7.40-12.00) fL Neut % (Auto) (48.0-80.0) % Lymph % (Auto) (16.0-40.0) % [place] % (Auto) (0.0-15.0) % Eos % (Auto) (0.0-7.0) % Baso % (Auto) (0.0-1.5) % Neut # (Auto) (1.4-5.7) K/uL Lymph # (Auto) (0.6-2.4) K/uL [place] # (Auto) (0.0-0.8) K/uL Eos # (Auto) (0.0-0.7) K/uL Baso # (Auto) (0.0-0.1) K/uL Nucleated RBC % /100WBC Nucleated RBCs # K/uL INR Sodium 138 (136-145) mmol/L Potassium 3.8 (3.5-5.1) mmol/L Chloride 103 (98-107) mmol/L Carbon Dioxide 25.5 (21.0-32.0) mmol/L BUN 11 (7.0-18.0) mg/dL Creatinine 0.8 (0.6-1.0) mg/dL Est Cr Clr Drug Dosing 62.44 mL/min Estimated GFR (MDRD) > 60.0 ml/min Glucose 119 H (74-106) mg/dL Hemoglobin A1c (4.5-6.2) % Calcium 7.1 L (8.5-10.1) mg/dL Phosphorus 4.6 (2.6-4.7) mg/dL Magnesium 2.0 (1.8-2.4) mg/dL Total Bilirubin (0.2-1.0) mg/dL AST (15-37) IU/L ALT (14-63) IU/L Alkaline Phosphatase (46-116) U/L Troponin I < 0.050 (0.000-0.056) ng/mL Total Protein (6.4-8.2) g/dL Albumin (3.4-5.0) g/dL Globulin (2.6-4.0) g/dL Albumin/Globulin Ratio (0.9-1.6) Triglycerides 106 (0-200) mg/dL Cholesterol 138 (50-200) mg/dL LDL Cholesterol, Calc 69 (60-180) mg/dL VLDL Cholesterol 21 (5-55) mg/dL HDL Cholesterol 48 (40-60) mg/dL Cholesterol/HDL Ratio 2.9 L (3.3-6.0) TSH 3rd Generation (0.36-3.74) uIU/mL Med Orders - Current: Current Medications Amlodipine Besylate (Norvasc) 5 mg PO DAILY [facility] Last Admin: 08/22/19 09:18 Dose: 5 mg Aspirin (Aspirin) 81 mg PO DAILY [facility] Last Admin: 08/22/19 09:18 Dose: 81 mg Atorvastatin Calcium (Lipitor) 20 mg PO BEDTIME [facility] Last Admin: 08/21/19 20:01 Dose: 20 mg Bupropion HCl (Wellbutrin Xl) 450 mg PO DAILY [facility] Last Admin: 08/22/19 09:19 Dose: 450 mg Levothyroxine Sodium (Levothyroxine) 224 mcg PO DAILY@0700 [facility] Last Admin: 08/22/19 07:47 Dose: 224 mcg Lorazepam (Ativan) 0.5 mg IVPUSH Q4H PRN PRN Reason: Anxiety Sodium Chloride (Saline Flush) 10 ml FLUSH ASDIRECTED PRN PRN Reason: Keep Vein Open Sodium Chloride (Saline Flush) 2.5 ml FLUSH ASDIRECTED PRN PRN Reason: Keep Vein Open Discontinued Medications Aspirin (Aspirin) 81 mg PO ONETIME ONE Stop: 08/21/19 15:36 Last Admin: 08/21/19 16:27 Dose: 81 mg Gadobenate Dimeglumine (Multihance) 20 ml IVPUSH ONETIME STA Stop: 08/22/19 12:45 Last Admin: 08/22/19 13:09 Dose: 20 ml Sodium Chloride (Normal Saline) 1,000 mls @ 999 mls/hr IV STAT ONE Stop: 08/21/19 16:11 Last Admin: 08/21/19 15:24 Dose: 999 mls/hr Lorazepam (Ativan) 0.5 mg IVPUSH ONCALL ONE Stop: 08/22/19 10:45 Last Admin: 08/22/19 11:27 Dose: 0.5 mg Magnesium Oxide (Magnesium Oxide) 800 mg PO ONETIME ONE Stop: 08/21/19 19:41 Last Admin: 08/21/19 20:00 Dose: 800 mg Potassium Chloride (Klor-Con M20) 40 meq PO ONETIME ONE Stop: 08/21/19 17:59 Last Admin: 08/21/19 20:00 Dose: 40 meq - Exam General: Reports: Alert, Oriented, No Acute Distress Lungs: Reports: Clear to Auscultation, Normal Respiratory Effort Cardiovascular: Reports: Regular Rate, Regular Rhythm GI/Abdominal Exam: Normal Bowel Sounds, Soft, Non-Tender Back Exam: Reports: Normal Inspection, Full Range of Motion Extremities: Normal Inspection, Normal Range of Motion, Non-Tender, No Pedal Edema Psy/Mental Status: Reports: Alert, Normal Affect, Normal Mood
== END 2019-08-22 15:30 | disposition home or self-care (01) ==
LOC: MW.ED 14:57 → MW.MS 17:03
PROVIDERS: ADMIT Student in an Organized Health Care Education/Training Program; ATTEND Student in an Organized Health Care Education/Training Program
DX: R55 Syncope and collapse (principal); R42 Dizziness and giddiness; R20.2 Paresthesia of skin; G43.909 Migraine, unspecified, not intractable, without status migrainosus; I10 Essential (primary) hypertension; E11.9 Type 2 diabetes mellitus without complications; E03.9 Hypothyroidism, unspecified; E66.9 Obesity, unspecified; Z79.890 Hormone replacement therapy; Z88.6 Allergy status to analgesic agent; Z91.013 Allergy to seafood; Z98.84 Bariatric surgery status; Z79.82 Long term (current) use of aspirin; Z79.899 Other long term (current) drug therapy; Z68.39 Body mass index [BMI] 39.0-39.9, adult
CPT/HCPCS: 36415; 70450; 70544; 70549; 70551; 71045; 80048; 80053; 80061; 83036; 83735; 84100; 84443; 84484; 85025; 85610; 93005; 93306; 96360; 97161; 99285; A9270; A9577; J2060; J7030

== ENCOUNTER 2020-11-11 21:42 | Emergency (ER) | payer OTHER ==
[2020-11-11] MEDS ORDERED: predniSONE 20 MG Tab PO ONE (23:04)
[2020-11-11] MEDS ORDERED: predniSONE 10 MG Tab ONE (23:18)
[2020-11-11 23:54] LABS: BLOOD UREA NITROGEN,BUN 16 mg/dL (7.0-18.0); CARBON DIOXIDE,CO2 25.6 mmol/L (21.0-32.0); CHLORIDE,CL 102 mmol/L (98-107); GLUCOSE RANDOM 93 mg/dL (74-106); POTASSIUM,K 2.9 mmol/L (3.5-5.1); SODIUM,NA 138 mmol/L (136-145)
[2020-11-12] MEDS ORDERED: Cephalexin 500 MG Cap PO ONE (00:28)
--- NOTE | 2020-11-12 00:30 | EDM.PDOC ---
ED HPI GENERAL MEDICAL PROBLEM - General Chief Complaint: Skin Complaint Stated Complaint: BAD RASH Time Seen by Provider: 11/11/20 23:07 - History of Present Illness INITIAL COMMENTS - FREE TEXT/NARRATIVE: CHIEF COMPLAINT(S): Rash HISTORY OF PRESENT ILLNESS: This is a 50-year-old woman with a past medical history of hypertension, hypothyroidism, hypocalcemia who comes to the emergency department with a chief complaint of rash. The patient states that approximately 2 days ago she thought she had a mosquito bite to her right leg. She states that she has been using lavender oil to apply to it to prevent an infection. However today she was on her feet all day and she noticed increased redness where this mosquito bite was and then she developed a rash on her bilateral ankles. She states that the rash on her bilateral ankles is burning and itching. She denies any exposure to anything, new detergents or any other exposures. She states that she has never had this before. She states that she thinks this is happening because she was standing all day and did not drink enough water. She denies any fever, chills. She states that she took 2 Benadryl at 9 PM and that seemed to help with the itching. But the burning still exist. She denies any other symptoms REVIEW OF SYSTEMS: Constitutional: Denies fever, chills. Eyes: Denies eye pain Ears, Nose, Mouth, & Throat: Denies earache Cardiovascular: Denies chest pain Respiratory: Denies shortness of breath Gastrointestinal: Denies Nausea, vomiting, diarrhea, hematochezia. Genitourinary: Denies hematuria dysuria Skin: Positive for rash to bilateral lower extremities, burning rash, itchy rash MSK: Denies joint pain, swelling neurological: Denies blurred vision, numbness, tingling, weakness PAST MEDICAL HISTORY: As per history of present illness and as reviewed below otherwise noncontributory. SURGICAL HISTORY: As per history of present illness and as reviewed below otherwise noncontributory. SOCIAL HISTORY: As per history of present illness and as reviewed below otherwise noncontributory. FAMILY HISTORY: As per history of present illness and as reviewed below otherwise noncontributory. EXAMINATION OF ORGAN SYSTEMS/BODY AREAS: Constitutional: Blood pressure was 149/86, heart rate 97, respiratory rate 20 with an oxygen saturation of 95% on room air. General: Overall well-appearing woman who is in no acute distress Psychiatric: Appropriate mood and affect. Eyes: No scleral icterus or conjunctival erythema ENMT: Moist mucous membranes. No pharyngeal erythema there is a postsurgical scar after thyroidectomy which is well-healed. Cardiovascular: Regular, rate, and rhythm. No gallops, murmurs, or rubs. Bilateral upper extremity pulses and lower extremity symmetric and intact. No peripheral edema. No JVD. Respiratory: Lungs clear to auscultation bilaterally. No wheezes, rales, or rhonchi. Gastrointestinal: Soft, non-tender, non-distended. Normoactive bowel sounds Genitourinary: No suprapubic tenderness Musculoskeletal: Normal range of motion. Skin: There is an area on the patient's right medial giraldo which is erythematous with surrounding erythema this area is nonfluctuant. There is no crepitus. On the patient's bilateral lower ankle there is a nonblanching what appears to be petechial rash grouped together around ankles. This area is nontender. It is mildly warm Neurological: Alert, GCS 15, numbness, tingling, weakness MEDICAL DECISION MAKING AND COURSE IN THE ED WITH INTERPRETATION/REVIEW OF DIAGNOSTIC STUDIES: This is a 50-year-old woman without any significant past medical history who comes to the emergency department with bilateral lower extremity nonblanching what appears to be petechial rash which is not raised and nontender with an area on the right giraldo which is erythematous without any fl uctuance. At this time given the burning and itching I do suspect the possibility of a contact dermatitis however we will evaluate with laboratory analysis including CBC, CMP, coags. Given that this kind of looks petechial. We will provide the patient with Keflex as I do believe the area of erythema on the right giraldo is a cellulitis. We will provide the patient with prednisone by mouth. Laboratory: CBC is unremarkable. Coags are within normal limits. CMP reveals hypokalemia at 2.9, elevated creatinine of 1.2, hypocalcemia at 7.3. These labs appear to be around the same on 02/23/2020 After labs I did discuss the results with the patient. I did discuss with her that I would like to treat her right red area on the medial giraldo as a skin infection. I will treat the other as a contact dermatitis. She was given strict return precautions and follow-up with dermatology in 3 to 5 days for reevaluation DISPOSITION: The patient was discharged home in stable condition. The patient will follow up with dermatology in 3 to 5 days for reevaluation CONDITION: Fair PROCEDURES: None FINAL IMPRESSION(S)/DIAGNOSES: 1. Acute cellulitis of the right giraldo 2. Acute possible contact dermatitis Magnus Case M.D. 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: Benadryl - Related Data Allergies Allergy/AdvReac Type Severity Reaction Status Date / Time codeine Allergy Airway Verified 08/21/19 21:44 Tightness morphine Allergy Airway Verified 08/21/19 21:44 Tightness Home Meds: Home Meds Levothyroxine Sodium [Synthroid] 224 mcg PO DAILY 10/22/17 [History] buPROPion HCL [Wellbutrin Xl] 450 mg PO DAILY 10/22/17 [History] Calcium Carbonate [Calcium] 600 mg PO TID 03/25/18 [History] EPINEPHrine [Epipen 2-[place]] 0.3 mg IM ONETIME #1 dose 03/25/18 [Rx] Cholecalciferol (Vitamin D3) [Vitamin D3] 5,000 unit PO ASDIRECTED 08/16/19 [History] Aspirin 81 mg PO DAILY tab.chew 08/22/19 [Rx] amLODIPine [Norvasc] 5 mg PO DAILY #30 tablet 08/22/19 [Rx] Hydrocortisone [Hydrocortisone 2.5% Crm] 30 gm .XX Q6HR #30 gm 11/12/20 [Rx] Hydrocortisone [Hydrocortisone 2.5% Crm] 30 gm .XX Q6HR #30 gm 11/12/20 [Rx] cephALEXin [Cephalexin] 500 mg PO Q6HR #20 capsule 11/12/20 [Rx] cephALEXin [Cephalexin] 500 mg PO Q6HR #20 tablet 11/12/20 [Rx] Past Medical History - Past Health History Medical/Surgical History: Denies Medical/Surgical History HEENT History: Reports: Other (See Below) Other HEENT History: wears glasses Cardiovascular History: Reports: Other (See Below) Other Cardiovascular History: HTN in the past-not since wt loss Respiratory History: Reports: None Gastrointestinal History: Reports: None Genitourinary History: Reports: None 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 , Musculoskeletal History: Reports: Arthritis Neurological History: Reports: Migraines Psychiatric History: Reports: Anxiety, Depression, Suicide Attempt Endocrine/Metabolic History: Reports: Diabetes, Type II, Hypothyroidism, Obesity/BMI 30+ Other Endocrine/Metabolic History: type II diabetes prior to gastric sleeve Hematologic History: Reports: None Immunologic History: Reports: None Oncologic (Cancer) History: Reports: None Dermatologic History: Reports: None - Infectious Disease History Infectious Disease History: Reports: Chicken Pox - Past Surgical History Head Surgeries/Procedures: Reports: None HEENT Surgical History: Reports: Tonsillectomy GI Surgical History: Reports: Appendectomy, Bariatric Procedure, Cholecystectomy Other GI Surgeries/Procedures: gastric sleeve Female Surgical History: Reports: Section, Endometrial Ablation, S alpingo-Oophorectomy, Tubal Ligation Other Female Surgeries/Procedures: laparoscopy with S&O for ectopic , c/section x4 Endocrine Surgical History: Reports: Thyroidectomy Social & Family History - Family History Family Medical History: No Pertinent Family History - Tobacco Use Tobacco Use Status *Q: Never Tobacco User - Caffeine Use Caffeine Use: Reports: Coffee - Alcohol Use Days Per Week of Alcohol Use: 1 Number of Drinks Per Day: 1 Total Drinks Per Week: 1 - Recreational Drug Use Recreational Drug Use: No ED ROS GENERAL - Review of Systems Review Of Systems: See Below ED EXAM, SKIN/RASH Exam: See Below Course - Vital Signs Last Recorded V/S: Last Vital Signs Temp Pulse 76 11/12/20 01:03 Resp 20 11/12/20 01:03 BP 120/68 11/12/20 01:03 Pulse Ox 98 11/12/20 01:03 - Orders/Labs/Meds Labs: Laboratory Tests 11/11/20 11/11/20 11/11/20 Range/Units 23:14 23:14 23:14 WBC 8.36 (4.0-11.0) K/uL RBC 4.28 L (4.30-5.90) M/uL Hgb 12.9 (12.0-16.0) g/dL Hct 37.4 (36.0-46.0) % MCV 87.4 (80.0-98.0) fL MCH 30.1 (27.0-32.0) pg MCHC 34.5 (31.0-37.0) g/dL RDW Std Deviation 43.9 (28.0-62.0) fl RDW Coeff of Servando 14 (11.0-15.0) % Plt Count 284 (150-400) K/uL MPV 9.80 (7.40-12.00) fL Neut % (Auto) 65.7 (48.0-80.0) % Lymph % (Auto) 27.5 (16.0-40.0) % [place] % (Auto) 5.6 (0.0-15.0) % Eos % (Auto) 0.8 (0.0-7.0) % Baso % (Auto) 0.4 (0.0-1.5) % Neut # (Auto) 5.5 (1.4-5.7) K/uL Lymph # (Auto) 2.3 (0.6-2.4) K/uL [place] # (Auto) 0.5 (0.0-0.8) K/uL Eos # (Auto) 0.1 (0.0-0.7) K/uL Baso # (Auto) 0.0 (0.0-0.1) K/uL Nucleated RBC % 0.0 /100WBC Nucleated RBCs # 0 K/uL INR 1.00 APTT 26.7 (18.6-31.3) SEC Sodium 138 (136-145) mmol/L Potassium 2.9 L (3.5-5.1) mmol/L Chloride 102 (98-107) mmol/L Carbon Dioxide 25.6 (21.0-32.0) mmol/L BUN 16 (7.0-18.0) mg/dL Creatinine 1.2 H (0.6-1.0) mg/dL Est Cr Clr Drug Dosing TNP Estimated GFR (MDRD) 47.9 ml/min Glucose 93 (74-106) mg/dL Calcium 7.3 L (8.5-10.1) mg/dL Total Bilirubin 0.4 (0.2-1.0) mg/dL AST 25 (15-37) IU/L ALT 29 (14-63) IU/L Alkaline Phosphatase 113 (46-116) U/L Total Protein 7.8 (6.4-8.2) g/dL Albumin 3.9 (3.4-5.0) g/dL Globulin 3.9 (2.6-4.0) g/dL Albumin/Globulin Ratio 1.0 (0.9-1.6) TSH, Ultra Sensitive 21.14 H (0.36-3.74) uIU/mL Meds: Medications Discontinued Medications Generic Name Dose Route Start Last Admin Trade Name Martine PRN Reason Stop Dose Admin Cephalexin 500 mg 11/12/20 00:28 11/12/20 00:59 Cephalexin 500 Mg Cap PO 11/12/20 00:29 500 mg ONETIME ONE Administration Prednisone 60 mg 11/11/20 23:04 11/11/20 23:16 Prednisone 20 Mg Tab PO 11/11/20 23:05 60 mg ONETIME ONE Administration Prednisone Confirm 11/11/20 23:18 Prednisone 10 Mg Tab Administered 11/11/20 23:19 Dose 10 mg .ROUTE .STK-MED ONE Departure - Departure Time of Disposition: 00:29 Disposition: Home, Self-Care 01 Condition: Fair Clinical Impression: Cellulitis, Contact dermatitis - Discharge Information *PRESCRIPTION DRUG MONITORING PROGRAM REVIEWED*: No *COPY OF PRESCRIPTION DRUG MONITORING REPORT IN PATIENT JAIRO: No Prescriptions: cephALEXin [Cephalexin] 500 mg PO Q6HR #20 capsule cephALEXin [Cephalexin] 500 mg PO Q6HR #20 tablet Hydrocortisone [Hydrocortisone 2.5% Crm] 30 gm .XX Q6HR #30 gm Hydrocortisone [Hydrocortisone 2.5% Crm] 30 gm .XX Q6HR #30 gm Instructions: Cellulitis, Adult, [id number], Contact Dermatitis, [id number] Referrals: PCP,None [Primary Care Provider] - Forms: ED Department Discharge Additional Instructions: You were evaluated today on an emergent basis. At this time all of your labs were normal. At this time we are going to treat your rash as a contact dermatitis. I would like you to use hydrocortisone to your bilateral lower legs 4 times a day. In addition I would like you to use Keflex 4 times a day for the prior infection on the right leg. I would like you to follow-up with dermatology within 1 to 3 days. Please return if you have any worsening symptoms. [facility] [address], [address] [place], [place] [id number] [phone] The patient is informed of any results of their evaluation and diagnostic workup and all questions are answered. They are given discharge instructions and return precautions. The patient is stable for discharge. The patient states they understand and agree with the plan and that they will return if their symptoms get worse or if they have any new concerns. The following information is given to patients seen in the emergency department who are being discharged to home. This information is to outline your options for follow-up care. We provide all patients seen in our emergency department with a follow-up referral. The need for follow-up, as well as the timing and circumstances, are variable depending upon the specifics of your emergency department visit. If you don't have a primary care physician on staff, we will provide you with a referral. We always advise you to contact your personal physician following an emergency department visit to inform them of the circumstance of the visit and for follow-up with them and/or the need for any referrals to a consulting specialist. The emergency department will also refer you to a specialist when appropriate. This referral assures that you have the opportunity for follow-up care with a specialist. All of these measure are taken in an effort to provide you with optimal care, which includes your follow-up. Under all circumstances we always encourage you to contact your private physician who remains a resource for coordinating your care. When calling for follow-up care, please make the office aware that this follow-up is from your recent emergency room visit. If for any reason you are refused follow-up, please contact the [facility] Emergency Department at and asked to speak to the emergency department charge nurse.
== END 2020-11-12 01:04 | disposition home or self-care (01) ==
LOC: MW.ED 21:42
DX: L03.115 Cellulitis of right lower limb (principal); L25.9 Unspecified contact dermatitis, unspecified cause; E03.9 Hypothyroidism, unspecified; I10 Essential (primary) hypertension; E11.9 Type 2 diabetes mellitus without complications; E66.9 Obesity, unspecified; Z68.30 Body mass index [BMI] 30.0-30.9, adult; Z88.5 Allergy status to narcotic agent; Z88.6 Allergy status to analgesic agent; Z79.82 Long term (current) use of aspirin; Z79.899 Other long term (current) drug therapy
CPT/HCPCS: 36415; 80053; 84443; 85025; 85610; 85730; 99283; A9270

== ENCOUNTER 2023-12-12 08:31 | Emergency (ER) | payer OTHER ==
[2023-12-12] MEDS: Bacitracin Oint 1 GM U/D Packet TOP ONE (09:05)
[2023-12-12] MEDS: Bacitracin Oint 28.35 GM Tube TOP ONE (09:07)
== END 2023-12-12 09:12 | disposition home or self-care (01) ==
LOC: MW.ED 08:31
DX: T23.201A Burn of second degree of right hand, unspecified site, initial encounter (principal); T31.0 Burns involving less than 10% of body surface; E11.9 Type 2 diabetes mellitus without complications; E03.9 Hypothyroidism, unspecified; E66.9 Obesity, unspecified; I10 Essential (primary) hypertension; Z79.899 Other long term (current) drug therapy; Z88.5 Allergy status to narcotic agent; Z88.8 Allergy status to other drugs, medicaments and biological substances; X19.XXXA Contact with other heat and hot substances, initial encounter; Y93.G3 Activity, cooking and baking; Z75.8 Other problems related to medical facilities and other health care; Z68.42 Body mass index [BMI] 45.0-49.9, adult
CPT/HCPCS: 99283; A9270; 99282

== ENCOUNTER 2025-01-13 01:28 | Emergency (ER) | payer OTHER ==
[2025-01-13 02:10] LABS: APPEARANCE,URINE CLEAR; GLUCOSE,URINE NEGATIVE (NEGATIVE); OCCULT BLOOD,URINE SMALL (NEGATIVE)
[2025-01-13] MEDS ORDERED: Sodium Chloride 0.9% 10 ML Syringe FLUSH PRN (02:11)
[2025-01-13] MEDS ORDERED: Sodium Chloride 0.9% 2.5 ML Syringe FLUSH PRN (02:11)
[2025-01-13 02:20] LABS: EPITHELIAL CELLS,URINE FEW (NONE-FEW)
[2025-01-13 02:23] LABS: BASOPHILS ABSOLUTE AUTO 0.02 K/uL (0.00-0.20); BASOPHILS PERCENT AUTO 0.2 % (0.0-1.0); EOSINOPHILS ABSOLUTE AUTO 0.01 K/uL (0.00-0.45); EOSINOPHILS PERCENT AUTO 0.1 % (0.0-6.0); IMMATURE GRAN ABSOLUTE AUTO 0.01 K/uL (0.00-0.05); IMMATURE GRAN PERCENT AUTO 0.1 % (0.0-0.4); LYMPHOCYTES ABSOLUTE AUTO 1.38 K/uL (1.00-4.80); LYMPHOCYTES PERCENT AUTO 14.7 % (24.0-44.0); MEAN PLATELET VOLUME 9.7 fL (9.4-12.3); MONOCYTES ABSOLUTE AUTO 0.14 K/uL (0.00-0.80); MONOCYTES PERCENT AUTO 1.5 % (0.0-8.0); NEUTROPHILS ABSOLUTE AUTO 7.82 K/uL (1.80-7.70); NEUTROPHILS PERCENT AUTO 83.4 % (41.0-71.0); NRBC ABSOLUTE 0.00 K/uL (0.00-0.02); NRBC PERCENT 0.0 /100WBC (0.0-0.2); PLATELET COUNT,PLT 268 K/uL (150-400); RED BLOOD CELL COUNT 4.53 M/uL (4.10-5.30); WHITE BLOOD CELL COUNT,WBC 9.38 K/uL (3.9-11.3)
[2025-01-13] MEDS: Ondansetron 4 MG/2 ML SDV IVPUSH ONE (02:24)
[2025-01-13 02:37] LABS: A/G RATIO 0.8 (0.9-1.6); ALANINE AMINOTRANSFERASE,ALT 28.0 IU/L (14-63); ASPARTATE AMNIOTRANSFERASE,AST 21.0 IU/L (15-37); BILIRUBIN TOTAL 0.2 mg/dL (0.2-1.0); BLOOD UREA NITROGEN,BUN 12.0 mg/dL (7.0-18.0); CARBON DIOXIDE,CO2 29.5 mmol/L (21.0-32.0); CHLORIDE,CL 101.0 mmol/L (98-107); CREATININE 1.0 mg/dL (0.6-1.0); EST CRCL DRUG DOSING (CG) 47.27 mL/min; GLUCOSE RANDOM 155.0 mg/dL (74-106); POTASSIUM,K 3.9 mmol/L (3.5-5.1); PROTEIN TOTAL,TP 7.3 g/dL (6.4-8.2); SODIUM,NA 139.0 mmol/L (136-145)
[2025-01-13 02:40] LABS: ESTIMATED GFR 68.0 mL/min (>60)
[2025-01-13] MEDS: Iopamidol 755 MG/ML 500 ML Multipack Bottle IVPUSH ONE (03:49)
[2025-01-13] MEDS: Midazolam 1 MG/ML 2 ML SDV IVPUSH ONE (07:18)
== END 2025-01-13 09:15 | disposition home or self-care (01) ==
LOC: MW.ED 01:28
DX: H93.19 Tinnitus, unspecified ear (principal); E11.9 Type 2 diabetes mellitus without complications; E03.9 Hypothyroidism, unspecified; E66.9 Obesity, unspecified; Z68.43 Body mass index [BMI] 50.0-59.9, adult; Z90.49 Acquired absence of other specified parts of digestive tract; Z98.84 Bariatric surgery status; Z88.5 Allergy status to narcotic agent; Z79.890 Hormone replacement therapy; Z79.899 Other long term (current) drug therapy
CPT/HCPCS: 36415; 70450; 70496; 70498; 70551; 80053; 81001; 83735; 84484; 85025; 93005; 96361; 96374; 96375; 96376; 99285; A9270; J2250; J2405; J3360; J7030; Q9967; 99284